=== PATIENT | male | born 1945 | race Caucasian/White ===

== ENCOUNTER → 2017-04-08 | Outpatient (CLI) | payer MEDICARE, BC ==
[~2017-04-08] MED LIST: COREG CR80 MG PO; COREG12.5 MG PO; DIOVAN160 MG PO; FUROSEMIDE40 MG PO; GLIPIZIDE5 MG PO; Hydralazine Hcl PO; LIPITOR20 MG; METFORMIN HCL500 MG PO; MINOCYCLINE HCL50 MG PO; NORVASC5 MG PO; Nifedipine PO; PENICILLIN V P500 MG PO; ULTRAM50 MG PO; WARFARIN SODIUM5 MG PO
--- NOTE | 2017-04-08 11:19 | Diagnostic Imaging Report ---
Exam: Head CT without contrast History: Memory loss, ataxia Comparison studies: None Technique: Axial images were obtained from the skull base to the vertex. Coronal and sagittal images reconstructed from the axial data. Intravenous contrast: None Findings: Scalp: Incidental dystrophic 6 mm calcification in the left occipital scalp. Bones: No fractures, blastic or lytic lesions. Brain volume: Mild generalized volume loss. No significant disproportionate lobar, hippocampal, brainstem or cerebellar atrophy. Ventricles: Mild compensatory dilatation. No hydrocephalus. Extra-axial spaces: No masses, no fluid collection. Parenchyma: No mass, acute hemorrhage or acute or chronic cortical vascular insults. A few scattered hypodensities in the supratentorial white matter are nonspecific but most compatible with chronic small vessel ischemic changes. Sellar/suprasellar region: No abnormalities. Craniocervical junction: Patent foramen magnum. No Chiari one malformation. Incidental findings: Atherosclerotic calcifications in the carotid siphons. IMPRESSION: 1. Mild generalized volume loss. No focal disproportionate atrophy. 2. Mild chronic microvascular ischemic changes. Signed by: Dr. Adan Salas M.D. on 04/08/2017 11:16 AM
== END ==
LOC: CT 08:51
PROVIDERS: ATTEND Internal Medicine
DX: R41.3 Other amnesia (principal); R27.0 Ataxia, unspecified
CPT/HCPCS: 70450

== ENCOUNTER 2018-06-01 11:38 | Inpatient (IN) | payer MEDICARE, BC ==
[~2018-06-01] VITALS: Ht 188 cm; Wt 118.2 kg
--- OUTSIDE RECORDS SUMMARY | 2018-06-01 11:42 | XMS REPORT ---
Author [facility] Address Unknown Phone Unavailable Care Team Providers Care Facility Manager Histology Name Role Phone BAYLEE GRAHAM Unavailable Unavailable Problems This patient has no known problems. Allergies, Adverse Reactions, Alerts This patient has no known allergies or adverse reactions. Medications This patient has no known medications. Results Test Description Test Time Test Comments Text Results Atomic Results Result Comments CT BRAIN WO [place] [address] Patient Name: ALETHA SAGE JR MR #: [id number] : 1945 Age/Sex: 72/M Req #: [id number] Adm Physician: Ordered by: BAYLEE GRAHAM Report #: [id number] Location: CT Room/Bed: Procedure: [id number] CT/CT BRAIN WO Exam Date: 04/08/17 Exam Time: 0915 REPORT STATUS: Signed Exam: Head CT without contrast History: Memory loss, ataxia Comparison studies: None Technique: Axial images were obtained from the skull base to the vertex. Coronal and sagittal images reconstructed from the axial data. Intravenous contrast: None Findings: Scalp: Incidental dystrophic 6 mm calcification in the left occipital scalp. Bones: No fractures, blastic or lytic lesions. Brain volume: Mild generalized volume loss. No significant disproportionate lobar, hippocampal, brainstem or cerebellar atrophy. Ventricles: Mild compensatory dilatation. No hydrocephalus. Extra-axial spaces: No masses, no fluid collection. Parenchyma: No mass, acute hemorrhage or acute or chronic cortical vascular insults. A few scattered hypodensities in the supratentorial white matter are nonspecific but most compatible with chronic small vessel ischemic changes. Sellar/suprasellar region: No abnormalities. Craniocervical junction: Patent foramen magnum. No Chiari one malformation. Incidental findings: Atherosclerotic calcifications in the carotid siphons. IMPRESSION: 1. Mild generalized volume loss. No focal disproportionate atrophy. 2. Mild chronic microvascular ischemic changes. Signed by: Dr. Sue Salas M.D. on 04/08/2017 11:16 AM Dictated By: SUE SALAS MD [id number] Transcribed By: JHON on 04/08/17 1116 COPY TO: BAYLEE GRAHAM
[2018-06-01 12:43] LABS: BASOPHILS % 0.3 % (0.0-1.0); EOSINOPHILS # (AUTO) 0.2 (0.0-0.4); EOSINOPHILS % 3.4 % (0.0-6.0); HEMATOCRIT 40.6 % (38.2-49.6); HEMOGLOBIN 13.2 g/dL (14.0-18.0); LYMPHOCYTES # (AUTO) 0.7 (1.0-3.2); LYMPHOCYTES % 11.6 % (18.0-39.1); MEAN CORPUSCULAR HEMOGLOBIN 29.3 pg (28-32); MEAN CORPUSCULAR HGB CONC 32.5 g/dL (31-35); MONOCYTES # (AUTO) 0.7 (0.2-0.8); MONOCYTES % 12.4 % (4.4-11.3); NEUTROPHILS # (AUTO) 4.3 (2.1-6.9); NEUTROPHILS % 72.1 % (38.7-80.0); PLATELET COUNT 120 x10e3/uL (140-360); RED BLOOD COUNT 4.51 x10e6/uL (4.3-5.7); RED CELL DISTRIBUTION WIDTH 13.2 % (11.7-14.4)
[2018-06-01 12:54] LABS: INR 1.51; PROTHROMBIN TIME 18.8 seconds (11.9-14.5)
[2018-06-01 12:56] LABS: PARTIAL THROMBOPLASTIN TIME 43.4 seconds (23.8-35.5)
--- NOTE | 2018-06-01 13:00 | Diagnostic Imaging Report ---
Examination: Single AP view of the chest. COMPARISON: None. INDICATION: Congestion, shortness of breath DISCUSSION: Lines/tubes: Dual-lead cardiac device. Sternotomy wires. Lungs: Pulmonary venous congestion and edema. Lower lung atelectasis. Pleura: Possible small effusions. Heart and mediastinum: Cardiomegaly. Bones and soft tissues: No acute bony abnormalities. IMPRESSION: 1. Cardiomegaly with edema. Signed by: Dr. Girish Del Castillo M.D. on 06/01/2018 12:57 PM
[2018-06-01 13:04] LABS: ALBUMIN 3.1 g/dL (3.5-5.0); ALBUMIN/GLOBULIN RATIO 0.9 (0.8-2.0); ANION GAP 10.3 mmol/L (8-16); CALCIUM 8.4 mg/dL (8.4-10.2); CREATININE, SERUM 1.94 mg/dL (0.72-1.25); MAGNESIUM 1.9 MG/DL (1.3-2.1); POTASSIUM 4.3 mmol/L (3.5-5.1)
[2018-06-01 13:10] LABS: CREATINE KINASE MB 4.1 ng/mL (0-5.0)
[2018-06-01] MEDS ORDERED: ASPIRIN 81 MG CHEW TAB PO NR (13:30)
[2018-06-01] MEDS ORDERED: CLOPIDOGREL75 MG PO (14:17)
[2018-06-01] MEDS ORDERED: ASPIR 8181 MG PO (14:17)
[2018-06-01] MEDS ORDERED: PACERONE100 MG PO (14:17)
[2018-06-01] MEDS ORDERED: WARFARIN SODIUM4 MG PO (14:17)
[2018-06-01] MEDS ORDERED: BENICAR40 MG PO (14:17)
[2018-06-01 14:54] LABS: B-TYPE NATRIURETIC PEPTIDE2 878.2 pg/mL (0-100)
--- NOTE | 2018-06-01 15:12 | NUR ---
REMOVED BIPAP FROM PATIENT AND PLACED ON 2L N/C
[2018-06-01 16:24] LABS: CLARITY,URINE HAZY (CLEAR); COLOR,URINE YELLOW (YELLOW); KETONES,URINE NEGATIVE (NEGATIVE); LEUKOCYTE ESTERASE ,URINE NEGATIVE (NEGATIVE); NITRITE,URINE NEGATIVE (NEGATIVE); PROTEIN,URINE DIPSTICK 1+ (NEGATIVE); URINE UROBILINOGEN 0.2 mg/dL (0.2 - 1)
[2018-06-01 16:25] LABS: BILIRUBIN,URINE NEGATIVE (NEGATIVE); WBC,URINE (MAN) 0-5 /HPF (0-5)
[2018-06-01 16:26] LABS: BACTERIA,URINE FEW /HPF; EPITHELIAL CELLS,URINE FEW /LPF
[2018-06-01] MEDS ORDERED: DEXTROSE 50% SYRINGE 50 ML IV PRN (16:30)
[2018-06-01 16:51] LABS: ABG PCO2 50 mmHg (41-51); ABG PH 7.31 (7.31-7.41); ABG PO2 93 mmHg (80-105)
[2018-06-01 16:52] LABS: ABG HCO3 26 mmol/L (23-28)
[2018-06-01] MEDS: INSULIN REGULAR, HUMAN 100 UNIT/1 ML 3ML VIAL SQ SCH ×2 (16:55→21:00)
--- NOTE | 2018-06-01 17:01 | Diagnostic Imaging Report ---
Exam: Abdominal film Clinical History: abdominal pain Comparison: None. DISCUSSION: Frontal view of the abdomen shows a nonobstructive bowel gas pattern with mild amount of retained stool. No dilated, air-filled loops of bowel. No abnormal calcifications. No acute bone abnormality. IMPRESSION: 1. Nonobstructive bowel gas pattern. Signed by: Dr. Girish Del Castillo M.D. on 06/01/2018 4:57 PM
[2018-06-01 17:26] VITALS: BP 143/74
[2018-06-01 17:37] VITALS: BP 143/74
--- NOTE | 2018-06-01 17:56 | NUR ---
Received patient from ER, A/Ox3, denies any pains, dgx of CHF, audible wheezing to all lung kiser, no resp distress, on O2 3L NC, call light within reach, consult to cardio and saw patient this morning, FS- 102 and VSS, will monitor
[2018-06-01 18:58] LABS: CREATINE KINASE MB 3.6 ng/mL (0-5.0)
--- NOTE | 2018-06-01 19:20 | NUR ---
REPORT TAKEN FROM AM RN.WALKING ROUNDS DONE.AAOX3.AMBULATES .UNSTEADY GATE NOTED.NC O2 3LGETTING. NO RESP.DISTRESS.NO PAIN VOICED.BED LOCKED AND IN LOWEST POSITION.PHONE AND CALL LIGHT WITHIN REACH.INSTRUCTED TO CALL FOR ASSISTANCE NEEDED.
[2018-06-01 19:31] VITALS: BP 154/63
[2018-06-01 21:00] VITALS: BP 154/63
[2018-06-01] MEDS: GUAIFENESIN 600 MG TAB PO PRN (21:53)
[2018-06-01] MEDS: FUROSEMIDE INJ 10 MG/ML 4 ML VIAL IV SCH (21:53)
--- NOTE | 2018-06-01 22:00 | NUR ---
HAS COUGH AND WHEEZING.NOTIFIED TO RADIO ADJUSTER ODALYS AND .RECEIVED NEW ORDERS .SPUTUM NEEDS TO BE COLLECTED.PROVIDED SPECIMEN CONTAINER AND EXPLAINED TO THE PT.FAMILY MEMBER AT BED SIDE.
[2018-06-01] MEDS ORDERED: ALBUTEROL/IPRATROPIUM 3 ML NEB NEB PRN (22:30)
[2018-06-02] VITALS (9 sets, daily range): BP systolic 112–161; BP diastolic 58–77
[2018-06-02 03:57] LABS: CREATINE KINASE MB 3.8 ng/mL (0-5.0)
[2018-06-02] MEDS: GUAIFENESIN 600 MG TAB PO PRN (06:00)
[2018-06-02] MEDS: FUROSEMIDE INJ 10 MG/ML 4 ML VIAL IV SCH ×3 (06:09→21:26)
--- NOTE | 2018-06-02 07:10 | NUR ---
Report given to the oncoming rn.walking rounds done.stable condition.
[2018-06-02] MEDS: INSULIN REGULAR, HUMAN 100 UNIT/1 ML 3ML VIAL SQ SCH ×4 (07:30→21:00)
[2018-06-02] MEDS ORDERED: ONDANSETRON HCL INJ 2MG/ML 2ML 2 MG/ML VIAL IV PRN ×2 (07:45→09:15)
[2018-06-02] MEDS ORDERED: ALBUTEROL/IPRATROPIUM 3 ML NEB NEB PRN (07:45)
[2018-06-02] MEDS ORDERED: HYDRALAZINE HCL 20 MG/ML VIAL IV PRN ×2 (07:45→09:15)
--- NOTE | 2018-06-02 08:01 | NUR ---
Received patient this morning, a/ox2-3, assisted to the bathroom and back to bed, on O2 3L NC, some dyspnea and NEB txs completed this morning, rounds by LIME TRIMMER for attending and notified of fever, home meds restarted, call light within reach, will monitor
[2018-06-02] MEDS: AZITHROMYCIN 500MG/NS 250 ML 250 ML IV SCH (08:15)
[2018-06-02] MEDS ORDERED: ZOLPIDEM TARTRATE 5 MG TAB PO PRN (08:15)
[2018-06-02] MEDS: CEFTRIAXONE SOD 1 GM/NS 50 ML 50 ML IV SCH (08:15)
[2018-06-02] MEDS ORDERED: SODIUM CHLORIDE 0.9% 250ML 250 ML ONE (08:36)
[2018-06-02 08:59] LABS: ANION GAP 13.7 mmol/L (8-16); CALCIUM 8.6 mg/dL (8.4-10.2); CHOL/HDL RATIO 3.6 (3.9-4.7); CREATININE, SERUM 2.3 mg/dL (0.72-1.25); MAGNESIUM 1.8 MG/DL (1.3-2.1); POTASSIUM 4.7 mmol/L (3.5-5.1)
[2018-06-02] MEDS ORDERED: NON-FORMULARY MEDICATION (Amiodarone Hcl (Pacerone) 100 MG) PO SCH (09:00)
[2018-06-02] MEDS: CARVEDILOL 40 MG CAPCR PO SCH (09:00)
[2018-06-02] MEDS ORDERED: NON-FORMULARY MEDICATION (Olmesartan Medoxomil (Benicar) 40 MG) PO SCH (09:00)
[2018-06-02] MEDS: AMLODIPINE BESYLATE 5 MG TAB PO SCH (09:00)
[2018-06-02] MEDS: ASPIRIN 81 MG CHEW TAB PO SCH (09:00)
[2018-06-02] MEDS ORDERED: FUROSEMIDE INJ 10 MG/ML 4 ML VIAL IV SCH (09:00)
[2018-06-02] MEDS: OLMESARTAN 20 MG TAB PO SCH (09:00)
[2018-06-02] MEDS ORDERED: WARFARIN SODIUM 4 MG PO SCH (09:00)
[2018-06-02] MEDS ORDERED: NON-FORMULARY MEDICATION (Carvedilol Phosphate (Coreg Cr) 80 MG) PO SCH (09:00)
[2018-06-02] MEDS: AMIODARONE HCL 200 MG TAB PO SCH (09:01)
[2018-06-02 09:06] LABS: B-TYPE NATRIURETIC PEPTIDE2 798.1 pg/mL (0-100)
[2018-06-02 09:08] LABS: CREATINE KINASE MB 3.8 ng/mL (0-5.0)
[2018-06-02] MEDS: VALSARTAN 160 MG TAB PO SCH (09:11)
[2018-06-02] MEDS: CLOPIDOGREL BISULFATE 75 MG TAB PO SCH (09:11)
[2018-06-02] MEDS: GUAIFENESIN 600MG/DEXTROMETHORPHAN 30MG TABSR PO SCH ×2 (09:11→16:50)
[2018-06-02] MEDS ORDERED: ACETAMINOPHEN 325 MG TAB PO PRN ×2 (09:15)
[2018-06-02 09:21] LABS: FREE T4 (FREE THYROXINE) 1.24 ng/dL (0.9-1.8); THYROID STIMULATING HORMONE 1.18 uIU/mL (0.350-4.940)
--- NOTE | 2018-06-02 09:45 | NUR ---
EDUCATED ABOUT IMM, SIGNED, FILED IN CHART, WITH COPY LEFT WITH FAMILY AT BEDSIDE.
[2018-06-02 10:12] LABS: BASOPHILS % 0.1 % (0.0-1.0); EOSINOPHILS # (AUTO) 0.1 (0.0-0.4); EOSINOPHILS % 1.1 % (0.0-6.0); HEMATOCRIT 42.7 % (38.2-49.6); LYMPHOCYTES # (AUTO) 0.7 (1.0-3.2); LYMPHOCYTES % 8.5 % (18.0-39.1); MEAN CORPUSCULAR HEMOGLOBIN 29.5 pg (28-32); MEAN CORPUSCULAR HGB CONC 32.8 g/dL (31-35); MEAN CORPUSCULAR VOLUME 89.9 fL (81-99); MONOCYTES # (AUTO) 0.9 (0.2-0.8); MONOCYTES % 11.9 % (4.4-11.3); NEUTROPHILS # (AUTO) 6.1 (2.1-6.9); NEUTROPHILS % 77.9 % (38.7-80.0); PLATELET COUNT 130 x10e3/uL (140-360); RED BLOOD COUNT 4.75 x10e6/uL (4.3-5.7); RED CELL DISTRIBUTION WIDTH 13.2 % (11.7-14.4)
[2018-06-02] MEDS: ALBUTEROL/IPRATROPIUM 3 ML NEB NEB SCH ×2 (13:00→19:50)
--- NOTE | 2018-06-02 15:43 | Consultation ---
DATE OF CONSULTATION: 06/02/2018 HISTORY OF PRESENT ILLNESS: The patient is a 73-year-old man. He has a history of aortic valve replacement about 12 years ago. He also has a history of hypertension and diabetes. He had a catheterization with a stent placement about six days ago. One to two days after the procedure, he noticed worsening cough and some congestion. He subsequently developed phlegm production and fever. PAST SURGICAL HISTORY: 1. Status post aortic valve replacement. 2. Status post cardiac catheterization with stent placement. PAST MEDICAL HISTORY: 1. Diabetes. 2. Hypertension. 3. Coronary artery disease. SOCIAL HISTORY: The patient is not a drinker. The patient is not a smoker. FAMILY HISTORY: The patient has no significant family history. ALLERGIES: NO KNOWN DRUG ALLERGIES. REVIEW OF SYSTEMS: There was a fever yesterday. He has no headache. He has no sore throat. He does have a cough productive of some discolored phlegm. He has some dyspnea. There is no chest pain. He has no abdominal pain. There is no nausea or vomiting. He has no leg edema. PHYSICAL EXAMINATION: VITAL SIGNS: The patient is afebrile, the blood pressure is 161/77, the pulse is 75, saturation is 97% on 3 L. HEENT: No facial swelling or erythema. The nasal mucosa is normal. The oropharynx is normal. LYMPHATIC: No submandibular, cervical, or supraclavicular adenopathy. CARDIAC: Regular rate and rhythm with normal S1, S2. There are no murmurs or rubs. LUNGS: Auscultation of lungs reveals rhonchorous breath sounds bilaterally. There is no wheezing. ABDOMEN: Soft, nontender. There is no rebound or guarding. EXTREMITIES: 2 to 3+ leg edema. NEUROLOGIC: No focal abnormalities. LABORATORY DATA: The white blood cell count is 7.8, the hemoglobin is 14, platelet count is 130. The BUN to creatinine ratio is 40 to 2.3. The other electrolytes are within normal limits. The INR is 1.51. RADIOGRAPHIC DATA: Chest x-ray shows cardiomegaly with some edema. IMPRESSION: 1. Ywmem-wv-muuqwcq systolic congestive heart failure. 2. Community-acquired pneumonia. 3. Tmxbi-qs-sftjzio renal failure. 4. Diabetes. 5. Hypertension. PLAN: 1. Continue diuretics. 2. Continue antibiotics. 3. Repeat chest x-ray and electrolytes tomorrow in the morning. MD RUIZ Carl/WM /[id number]
[2018-06-02] MEDS: WARFARIN SOD 2 MG TAB PO SCH (16:50)
[2018-06-02] MEDS: FAMOTIDINE 20 MG TAB PO SCH (16:50)
[2018-06-02] MEDS: GLIPIZIDE 5 MG TAB PO SCH (16:50)
--- NOTE | 2018-06-02 16:51 | NUR ---
Patient appears and feels better, wheezing resolving and denies any pains, tolerated IV abx, no resp distress, BS 65, offered OJ and tolerated well, no s/sx of hypo/hyperglycemia, will monitor.
--- NOTE | 2018-06-02 19:12 | NUR ---
Rounds completed and report given to on coming nurse, on O2 3L NC, no resp distress.
[2018-06-02] MEDS: ATORVASTATIN 20 MG TAB PO SCH (20:48)
--- NOTE | 2018-06-02 21:26 | NUR ---
BLOOD SUGAR 70MG/DL. SNACKS WAS OFFERED AND ACCEPTED BY PATIENT. NO COMPLAINS MADE.
[2018-06-03] VITALS (8 sets, daily range): BP systolic 110–136; BP diastolic 57–71
[2018-06-03] MEDS: ALBUTEROL/IPRATROPIUM 3 ML NEB NEB SCH ×4 (01:25→20:30)
[2018-06-03 03:36] LABS: BASOPHILS % 0.3 % (0.0-1.0); EOSINOPHILS # (AUTO) 0.1 (0.0-0.4); EOSINOPHILS % 1.6 % (0.0-6.0); HEMATOCRIT 41.7 % (38.2-49.6); HEMOGLOBIN 13.7 g/dL (14.0-18.0); LYMPHOCYTES # (AUTO) 1.2 (1.0-3.2); MEAN CORPUSCULAR HEMOGLOBIN 29.5 pg (28-32); MEAN CORPUSCULAR HGB CONC 32.9 g/dL (31-35); MEAN CORPUSCULAR VOLUME 89.7 fL (81-99); MONOCYTES # (AUTO) 1.2 (0.2-0.8); MONOCYTES % 16.4 % (4.4-11.3); NEUTROPHILS # (AUTO) 4.5 (2.1-6.9); NEUTROPHILS % 64.6 % (38.7-80.0); PLATELET COUNT 124 x10e3/uL (140-360); RED BLOOD COUNT 4.65 x10e6/uL (4.3-5.7); RED CELL DISTRIBUTION WIDTH 13.4 % (11.7-14.4)
--- NOTE | 2018-06-03 04:15 | Consultation ---
DATE OF CONSULTATION: 06/02/2018 Cardiology Consult Note REASON FOR CONSULT: Lnxcg-eo-fvehbzn systolic heart failure. CHIEF COMPLAINT: Shortness of breath. HISTORY OF PRESENT ILLNESS: The patient is a 73-year-old man with history of mechanical aortic valve, CAD, status post recent stent last week at [facility], chronic systolic heart failure, status post permanent pacemaker placement, who presents with several weeks of worsening lower extremity edema, eventually leading to worsening wheezing and shortness of breath to the point where he could not lay down and had to sit up and sleep, could not go to the bathroom without getting extremely short of breath, decided to come to the hospital. Denies any chest pain. He has been compliant with his dual antiplatelet therapy as well as his Coumadin. The patient's reports having some subjective fevers at home prior to admission as well. REVIEW OF SYSTEMS: As per HPI, otherwise negative. PAST MEDICAL HISTORY: 1. Diabetes. 2. Hypertension. 3. Coronary artery disease. 4. Aortic stenosis, status post aortic valve replacement with a mechanical aortic valve, on Coumadin. 5. Chronic systolic heart failure. SOCIAL HISTORY: The patient does not smoke, drink, or abuse drugs. FAMILY HISTORY: No family history of early CAD or sudden cardiac . MEDICATIONS: The patient's outpatient medications were reviewed. Inpatient medications were reviewed. PHYSICAL EXAMINATION: VITAL SIGNS: Temperature 101.7, pulse 81, respiratory rate 24, blood pressure 161/77, and saturating 93% on 3 L nasal cannula. GENERAL: Obese white man, in no acute distress. CARDIOVASCULAR: Mechanical aortic valve. No murmurs, rubs, or gallops. Palpable carotid pulses. Palpable radial pulses. LUNGS: Bibasilar crackles. ABDOMEN: Very obese, soft, nontender, and distended. NEURO AND PSYCH: Alert and oriented to person, place, and time. Normal affect. LABORATORY DATA: Reviewed. IMAGING DATA: Reviewed. Chest x-ray shows cardiomegaly with pulmonary edema. Abdominal x-ray shows nonobstructive bowel gas pattern. TELEMETRY DATA: Reviewed, shows sinus rhythm with occasional pacing. ASSESSMENT: 1. Ywrgy-kn-tiqatjd systolic heart failure. 2. Coronary artery disease, status post recent PCI to the LAD. 3. History of permanent pacemaker placement. 4. History of mechanical aortic valve replacement. 5. Community-acquired pneumonia. 6. Acute kidney injury on chronic kidney disease. PLAN: Continue high-dose IV Lasix 80 mg IV q.8 hours. The patient is diuresing well. Antibiotics per primary team. Continue Coumadin, aspirin, and Plavix given his mechanical aortic valve and recent PCI. No evidence of bleeding. We will obtain echocardiogram to evaluate his valve function as well as LV function to see if there are any acute changes. Thank you for this consult. We will continue to follow. MD LAURENT Monteiro/MODL /[id number]
[2018-06-03 04:29] LABS: ALBUMIN 3.1 g/dL (3.5-5.0); ALBUMIN/GLOBULIN RATIO 0.9 (0.8-2.0); ANION GAP 13.9 mmol/L (8-16); CALCIUM 8.4 mg/dL (8.4-10.2); CREATININE, SERUM 2.45 mg/dL (0.72-1.25); POTASSIUM 3.9 mmol/L (3.5-5.1)
--- NOTE | 2018-06-03 05:08 | NUR ---
Blood sugar low, patient is alert and conversant. Snacks offered.
--- NOTE | 2018-06-03 05:40 | NUR ---
Blood sugar rechecked 75 mg/dl.
[2018-06-03] MEDS: FUROSEMIDE INJ 10 MG/ML 4 ML VIAL IV SCH ×3 (05:41→21:44)
--- NOTE | 2018-06-03 06:20 | NUR ---
Left a message to Dr. Mc production recovery operator for Dr. Herrera patient had 6 beats of VT. Patient was asymptomatic. No complains.
--- NOTE | 2018-06-03 06:55 | Diagnostic Imaging Report ---
EXAMINATION: CHEST SINGLE (PORTABLE) INDICATION: CHF. COMPARISON: Chest x-ray 06/01/2018. FINDINGS: AP view TUBES and LINES: Left chest wall cardiac device. LUNGS: Stable edema. PLEURA: Possible small pleural effusions. No pneumothorax. HEART AND MEDIASTINUM: Stable cardiomegaly. BONES AND SOFT TISSUES: No acute osseous lesion. Sternotomy wires. Soft tissues are unremarkable. UPPER ABDOMEN: No free air under the diaphragm. IMPRESSION: Stable cardiomegaly and edema. Signed by: DR. Wiley Cortez MD on 06/03/2018 6:52 AM
[2018-06-03] MEDS: INSULIN REGULAR, HUMAN 100 UNIT/1 ML 3ML VIAL SQ SCH (07:30)
[2018-06-03] MEDS: CEFTRIAXONE SOD 1 GM/NS 50 ML 50 ML IV SCH (08:25)
[2018-06-03] MEDS: AMIODARONE HCL 200 MG TAB PO SCH (08:29)
[2018-06-03] MEDS: ASPIRIN 81 MG CHEW TAB PO SCH (08:29)
[2018-06-03] MEDS: OLMESARTAN 20 MG TAB PO SCH (08:29)
[2018-06-03] MEDS: GLIPIZIDE 5 MG TAB PO SCH ×2 (08:29→17:22)
[2018-06-03] MEDS: FAMOTIDINE 20 MG TAB PO SCH ×2 (08:29→17:22)
[2018-06-03] MEDS: CLOPIDOGREL BISULFATE 75 MG TAB PO SCH (08:30)
[2018-06-03] MEDS: GUAIFENESIN 600MG/DEXTROMETHORPHAN 30MG TABSR PO SCH ×2 (08:30→17:23)
[2018-06-03] MEDS: CARVEDILOL 40 MG CAPCR PO SCH (08:30)
[2018-06-03] MEDS: VALSARTAN 160 MG TAB PO SCH (08:30)
[2018-06-03] MEDS: AMLODIPINE BESYLATE 5 MG TAB PO SCH (08:30)
[2018-06-03] MEDS: AZITHROMYCIN 500MG/NS 250 ML 250 ML IV SCH (09:02)
[2018-06-03 13:22] LABS: INR 2.5; PROTHROMBIN TIME 27.7 seconds (11.9-14.5)
--- NOTE | 2018-06-03 14:39 | NUR ---
Patient in shower at this time. Nurse assisted patient.
--- NOTE | 2018-06-03 16:53 | Progress Note ---
DATE: 06/03/2018 Pulmonary Critical Care Progress Note SUBJECTIVE: The patient reports some dyspnea, but overall feels improved. He is receiving a breathing treatment. PHYSICAL EXAMINATION: VITAL SIGNS: The patient is afebrile. The blood pressure is 111/63 and the pulse is 63. Saturation is 96% on 3 L. HEENT: Shows no facial swelling or erythema. CARDIAC: Reveals a regular rate and rhythm with a prosthetic click. LUNGS: Auscultation of lungs reveal decreased crackles in the lung kiser. ABDOMEN: Soft and nontender. There is no rebound or guarding. EXTREMITIES: Show no leg edema or calf tenderness. There is no cyanosis or clubbing. SKIN: Shows no rashes. RADIOGRAPHIC DATA: Chest x-ray shows cardiomegaly with pulmonary edema. MICROBIOLOGY: Sputum culture shows gram-negative rods. LABORATORY DATA: White blood cell count is 7 and hemoglobin is 13.7. The platelet count is 124. The BUN to creatinine ratio is 50:2.45. Sodium is 133. The other electrolytes are within normal limits. IMPRESSION: 1. Acute on chronic systolic congestive heart failure. 2. Community-acquired pneumonia. 3. Thrombocytopenia. 4. Acute on chronic renal failure. 5. Diabetes. 6. Hypertension. PLAN: 1. Continue current antibiotics and await final culture results. 2. Oxygen. 3. Bronchodilators. 4. Continue current cardiac regimen. Jan Canas MD [facility]/JASSL /[id number]
[2018-06-03] MEDS: WARFARIN SOD 2 MG TAB PO SCH (17:23)
--- NOTE | 2018-06-03 19:14 | Progress Note ---
DATE: 06/03/2018 Cardiology Progress Note SUBJECTIVE: Feeling much better today, no more respiratory distress. OBJECTIVE: VITAL SIGNS: Temperature 97.0, pulse 65, respiratory rate 22, blood pressure 112/63, saturating 97% on 3 L nasal cannula. GENERAL: Elderly white man, in no acute distress. CARDIOVASCULAR: Mechanical aortic valve. No murmurs, rubs, or gallops. Palpable carotid pulses. Palpable radial pulses. LUNGS: Bibasilar crackles. ABDOMEN: Obese, soft, nontender, nondistended. NEURO AND PSYCH: Alert and oriented to person, place, and time. Normal affect. LABORATORY DATA: Reviewed. IMAGING DATA: Reviewed. TELEMETRY DATA: Reviewed, shows normal sinus rhythm. ASSESSMENT: 1. Acute on chronic systolic heart failure. 2. Coronary artery disease, status post recent percutaneous coronary intervention to left anterior descending artery. 3. History of permanent pacemaker placement. 4. History of mechanical aortic valve replacement, on Coumadin. 5. Community-acquired pneumonia. 6. Acute kidney injury on chronic kidney disease. PLAN: Continue IV diuretics. The patient continues to feel better. Chest x-ray still shows some pulmonary edema. Renal function is stable. Continue aspirin, Plavix, and warfarin. Thank you for this consult. We will continue to follow. MD LAURENT Monteiro/WM /[id number]
[2018-06-03] MEDS: ATORVASTATIN 20 MG TAB PO SCH (21:44)
[2018-06-04] VITALS (8 sets, daily range): BP systolic 123–159; BP diastolic 55–79
[2018-06-04] MEDS: ALBUTEROL/IPRATROPIUM 3 ML NEB NEB SCH ×4 (01:00→19:05)
[2018-06-04 04:16] LABS: BASOPHILS % 0.3 % (0.0-1.0); EOSINOPHILS # (AUTO) 0.3 (0.0-0.4); EOSINOPHILS % 3.8 % (0.0-6.0); HEMATOCRIT 42.6 % (38.2-49.6); LYMPHOCYTES # (AUTO) 1.3 (1.0-3.2); LYMPHOCYTES % 18.2 % (18.0-39.1); MEAN CORPUSCULAR HEMOGLOBIN 29.4 pg (28-32); MEAN CORPUSCULAR HGB CONC 32.9 g/dL (31-35); MEAN CORPUSCULAR VOLUME 89.5 fL (81-99); MONOCYTES # (AUTO) 0.9 (0.2-0.8); MONOCYTES % 12.8 % (4.4-11.3); NEUTROPHILS # (AUTO) 4.5 (2.1-6.9); NEUTROPHILS % 64.5 % (38.7-80.0); PLATELET COUNT 134 x10e3/uL (140-360); RED BLOOD COUNT 4.76 x10e6/uL (4.3-5.7); RED CELL DISTRIBUTION WIDTH 13.2 % (11.7-14.4)
[2018-06-04 04:33] LABS: ANION GAP 14.3 mmol/L (8-16); CALCIUM 8.3 mg/dL (8.4-10.2); CREATININE, SERUM 2.69 mg/dL (0.72-1.25); MAGNESIUM 2.1 MG/DL (1.3-2.1); POTASSIUM 4.3 mmol/L (3.5-5.1)
[2018-06-04] MEDS: FUROSEMIDE INJ 10 MG/ML 4 ML VIAL IV SCH ×2 (06:19→11:03)
--- NOTE | 2018-06-04 07:18 | NUR ---
Received patient in report this morning. Patient is awake, sitting in chair. No S&S of distress at time.
[2018-06-04 08:03] LABS: INR 2.44; PROTHROMBIN TIME 27.2 seconds (11.9-14.5)
[2018-06-04] MEDS ORDERED: METHYLPREDNISOLONE SOD SUCC 40 MG/ML VIAL 1ML IV SCH (09:00)
[2018-06-04] MEDS: OLMESARTAN 20 MG TAB PO SCH (09:09)
[2018-06-04] MEDS: FAMOTIDINE 20 MG TAB PO SCH ×2 (09:09→16:48)
[2018-06-04] MEDS: ASPIRIN 81 MG CHEW TAB PO SCH (09:09)
[2018-06-04] MEDS: CEFTRIAXONE SOD 1 GM/NS 50 ML 50 ML IV SCH (09:09)
[2018-06-04] MEDS: GLIPIZIDE 5 MG TAB PO SCH ×2 (09:09→16:48)
[2018-06-04] MEDS: CARVEDILOL 40 MG CAPCR PO SCH (09:10)
[2018-06-04] MEDS: GUAIFENESIN 600MG/DEXTROMETHORPHAN 30MG TABSR PO SCH ×2 (09:10→17:20)
[2018-06-04] MEDS: CLOPIDOGREL BISULFATE 75 MG TAB PO SCH (09:10)
[2018-06-04] MEDS: VALSARTAN 160 MG TAB PO SCH (09:10)
[2018-06-04] MEDS: AMLODIPINE BESYLATE 5 MG TAB PO SCH (09:10)
[2018-06-04] MEDS: AMIODARONE HCL 200 MG TAB PO SCH (09:13)
[2018-06-04] MEDS: AZITHROMYCIN 500MG/NS 250 ML 250 ML IV SCH (09:42)
--- NOTE | 2018-06-04 09:48 | NUR ---
Patient is awake and oriented, sitting in chair at side of bed. Oxygen NC at 3L in place. No SOB or pain reported at this time. Occasional productive coughing noted. Lung sounds diminished. Bowel sounds active. Skin in tact. Edema noted to BLE, more in left leg with pitting edema +1. Patient has no complaints at this time. Walker in reach. at bedside. Call light in reach. Non-skid footwear in place. Bed locked in lowest position.
--- NOTE | 2018-06-04 12:07 | NUR ---
EDUCATED ABOUT IMM, SIGNED, FILED IN CHART, WITH COPY LEFT WITH FAMILY AT BEDSIDE.
--- NOTE | 2018-06-04 15:00 | NUR ---
Home O2 eval performed at this time. Patient at rest on room air noted at 93%. Patient ambulated without oxygen on room air and noted at 96%. No s/s of SOB noted
--- NOTE | 2018-06-04 15:30 | Progress Note ---
DATE: 06/04/2018 Cardiology Progress Note SUBJECTIVE: No major events overnight. Feels much better today off oxygen. OBJECTIVE: VITAL SIGNS: Temperature 96.9, pulse 70, respiratory rate 20, blood pressure 136/55, saturating 98% on room air. GENERAL: Elderly white man, in no acute distress. CARDIOVASCULAR: Regular rate and rhythm. Mechanical aortic valve. No murmurs, rubs, or gallops. LUNGS: Mild scattered wheezing, otherwise no rales heard today. ABDOMEN: Very obese, soft, nontender, mildly distended. NEURO AND PSYCH: Alert, oriented to person, place, and time. Normal affect. INPATIENT MEDICATIONS: Reviewed. LABORATORY DATA: Reviewed. Renal function is slightly worsened today with creatinine of 2.7. IMAGING DATA: Reviewed. TELEMETRY DATA: Reviewed, it shows sinus and paced rhythm. ASSESSMENT: 1. Acute on chronic systolic heart failure, ejection fraction 45% to 50%. 2. Coronary artery disease, status post recent percutaneous coronary intervention to the left anterior descending artery. 3. History of permanent pacemaker placement. 4. History of mechanical aortic valve replacement, on Coumadin. 5. Community-acquired pneumonia. 6. Acute kidney injury on chronic kidney disease. PLAN: Decrease IV diuretic dose to 40 mg IV daily. Volume status much improved. Continue antibiotics per primary team. Continue aspirin, Plavix, and warfarin as well as other cardiovascular medications. Of note, the patient was on two angiotensin receptor blockers, I discontinued one of them. Thank you for this consult. We will continue to follow. MD LAURENT Monteiro/JASSL /[id number]
--- NOTE | 2018-06-04 15:35 | Progress Note ---
DATE: 06/04/2018 SUBJECTIVE: The patient feels better. He still has some cough. He is not having fevers. PHYSICAL EXAMINATION: VITAL SIGNS: The patient is afebrile. The blood pressure is 136/55 and the saturation is 94% on 3 L. The pulse is 70. HEENT: Shows no facial swelling or erythema. The nasal mucosa is normal. The oropharynx is normal. LYMPHATIC: Shows no submandibular, cervical, or supraclavicular adenopathy. NECK: Shows no JVD or thyromegaly. There is no nuchal rigidity. CARDIAC: Reveals a regular rate and rhythm with a normal S1 and S2. LUNGS: Auscultation of lungs reveals a few rhonchorous breath sounds bilaterally. There is no wheezing. ABDOMEN: Soft, nontender. There is no rebound or guarding. EXTREMITIES: Show no leg edema or calf tenderness. There is no cyanosis or clubbing. SKIN: Shows no rashes. NEUROLOGICAL: Shows no focal abnormalities. IMPRESSION: 1. Acute on chronic systolic congestive heart failure. 2. Community-acquired pneumonia. 3. Thrombocytopenia. 4. Acute on chronic renal failure. 5. Diabetes. 6. Hypertension. PLAN: 1. Wean Solu-Medrol. 2. Continue antibiotics and await final culture results. 3. Repeat CBC in a.m. 4. Continue oxygen. 5. Continue current cardiac regimen. Jan Canas MD LM/WM /[id number]
--- NOTE | 2018-06-04 15:45 | NUR ---
Nutrition Screen Note RD Recommendation for Physician: -Rec adding cardiac to ADA diet as medically appropriate Plan of Care: RD following, monitoring for tolerance and adequacy Nutrition reason for involvement: Diagnosis Primary Diagnose(s): 1. Acute on chronic systolic heart failure. 2. Coronary artery disease, status post recent percutaneous coronary intervention to left anterior descending artery. PMH: DM, HTN, CAD Ht: 74in Wt: 260.5lb BMI: 33.4kg/m2 IBW: 190lb RD Assessment: (06/04) Chart reviewed. Labs and meds reviewed. 73yo M, who was admitted for cough and congestion. 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 Pt denied chewing/swallowing problems and nausea/vomiting. Pt has had good appetite with >50% meal intake since admission. Will cont to monitor. Please consult as needed. Current Diet: ADA diet Malnutrition Evaluation (06/04) The patient does not meet criteria for a specified degree of malnutrition at this time. Will re-evaluate at follow-up as appropriate. Diet Education Needs Assessment: Diet education not indicated. Nutrition Care Level: low Signed: Tabitha Brown, MS, RD, LD
[2018-06-04] MEDS: WARFARIN SOD 2 MG TAB PO SCH (17:20)
[2018-06-04] MEDS: TOBRAMYCIN 40MG/ML 30ML MDV INH SCH (19:00)
--- NOTE | 2018-06-04 20:10 | NUR ---
ASSESSMENT DONE.NO RESP.DISTRESS.NO PAIN VOICED.AAOX3.RESTING IN THE RECYLINER.FAMILY MEMBER AT BED SIDE.PHONE AND CALL LIGHT WITHIN REACH.INSTRUCTED TO CALL FOR ASSISTANCE NEEDED.
[2018-06-04] MEDS: ATORVASTATIN 20 MG TAB PO SCH (21:47)
[2018-06-04] MEDS ORDERED: INSULIN REGULAR, HUMAN 100 UNIT/1 ML 3ML VIAL SQ ONE (22:00)
--- NOTE | 2018-06-04 22:11 | NUR ---
Blood sugar noted 409.notified to data input clerk of .ordered 3units humulin r one time dose.carried out the order.
[2018-06-05] VITALS (8 sets, daily range): BP systolic 147–186; BP diastolic 74–91
[2018-06-05] MEDS: ALBUTEROL/IPRATROPIUM 3 ML NEB NEB SCH ×3 (01:00→13:00)
--- NOTE | 2018-06-05 03:52 | NUR ---
BP NOTED 186/91.HYDRALAZINE 10 MG IV GIVEN.
--- NOTE | 2018-06-05 03:55 | NUR ---
BLOOD DRAWN AND SENT TO THE LAB.PT TOLERATED WELL.
[2018-06-05 04:02] LABS: HEMATOCRIT 42.6 % (38.2-49.6); HEMOGLOBIN 14.2 g/dL (14.0-18.0); LYMPHOCYTES # (AUTO) 0.6 (1.0-3.2); MEAN CORPUSCULAR HEMOGLOBIN 29.3 pg (28-32); MEAN CORPUSCULAR HGB CONC 33.3 g/dL (31-35); MONOCYTES # (AUTO) 0.4 (0.2-0.8); MONOCYTES % 7.5 % (4.4-11.3); NEUTROPHILS # (AUTO) 4.4 (2.1-6.9); NEUTROPHILS % 81.1 % (38.7-80.0); PLATELET COUNT 149 x10e3/uL (140-360); RED BLOOD COUNT 4.84 x10e6/uL (4.3-5.7); RED CELL DISTRIBUTION WIDTH 13.1 % (11.7-14.4)
[2018-06-05 04:16] LABS: INR 2.57; PROTHROMBIN TIME 28.3 seconds (11.9-14.5)
[2018-06-05 04:23] LABS: ALBUMIN/GLOBULIN RATIO 0.7 (0.8-2.0); CALCIUM 8.5 mg/dL (8.4-10.2); CREATININE, SERUM 2.32 mg/dL (0.72-1.25)
--- NOTE | 2018-06-05 06:17 | NUR ---
BP CHECKED AND NOTED 147/74 MMOF HG.
[2018-06-05] MEDS ORDERED: MUCINEX DM ER1 EACH PO (06:35)
[2018-06-05] MEDS ORDERED: CEFTIN PO (06:35)
[2018-06-05] MEDS ORDERED: PREDNISONE PO (06:35)
[2018-06-05] MEDS ORDERED: ZITHROMAX500 MG PO (06:35)
[2018-06-05] MEDS ORDERED: INSULIN LISPRO 100 UNIT/1 ML 3ML VIAL SQ SCH (06:45)
--- NOTE | 2018-06-05 06:50 | NUR ---
REPORT GIVEN TO THE ONCOMING RN.WALKING ROUNDS DONE.STABLE CONDITION.
[2018-06-05] MEDS: TOBRAMYCIN 40MG/ML 30ML MDV INH SCH (07:00)
--- NOTE | 2018-06-05 07:15 | NUR ---
Rcvd patient in report this am, Patient is asleep in recliner at this time. no s/s of distress noted
[2018-06-05] MEDS: FAMOTIDINE 20 MG TAB PO SCH ×2 (08:21→16:07)
[2018-06-05] MEDS: ASPIRIN 81 MG CHEW TAB PO SCH (08:21)
[2018-06-05] MEDS: AMIODARONE HCL 200 MG TAB PO SCH (08:21)
[2018-06-05] MEDS: GLIPIZIDE 5 MG TAB PO SCH ×2 (08:21→16:07)
[2018-06-05] MEDS: GUAIFENESIN 600MG/DEXTROMETHORPHAN 30MG TABSR PO SCH ×2 (08:22→16:07)
[2018-06-05] MEDS: CARVEDILOL 40 MG CAPCR PO SCH (08:22)
[2018-06-05] MEDS: CLOPIDOGREL BISULFATE 75 MG TAB PO SCH (08:22)
[2018-06-05] MEDS: VALSARTAN 160 MG TAB PO SCH (08:22)
[2018-06-05] MEDS: AMLODIPINE BESYLATE 5 MG TAB PO SCH (08:22)
[2018-06-05] MEDS ORDERED: METHYLPREDNISOLONE SOD SUCC 40 MG/ML VIAL 1ML IV SCH (09:00)
[2018-06-05] MEDS ORDERED: ONDANSETRON HCL 4 MG ORAL DISINTEGRATING TAB PO PRN (09:00)
[2018-06-05] MEDS ORDERED: CEFEPIME 1GM/NS 0.9% 50 ML 50 ML IV SCH ×2 (09:00→14:00)
--- NOTE | 2018-06-05 09:00 | NUR ---
Patient is alert and oriented x4. Reports sleeping on and off during the night. No complaints, pain, or SOB at this time. Lung sounds diminished. Bowel sounds active. Skin intact. 18 g IV to right forearm, saline locked, asymptomatic and patent. Slight edema to bilateral lower extremities, non-pitting. Patient ambulates to bathroom, no weakness or dyspnea on exertion reported. Patient still in recliner, prefers it to the bed. Call light in reach. Instructed to call for assistance.
--- NOTE | 2018-06-05 09:59 | Diagnostic Imaging Report ---
EXAMINATION: CHEST 2 VIEWS INDICATION: Shortness of breath. Congestive heart failure. ^CHF Pneumonia ^[id number] ^[id number] COMPARISON: 06/03/2018 FINDINGS: TUBES and LINES: Left chest wall cardiac device. LUNGS: Stable edema. PLEURA: Possible small pleural effusions. No pneumothorax. HEART AND MEDIASTINUM: Stable cardiomegaly. BONES AND SOFT TISSUES: No acute osseous lesion. Sternotomy wires. Soft tissues are unremarkable. UPPER ABDOMEN: No free air under the diaphragm. IMPRESSION: Stable cardiomegaly and edema. Signed by: Dr. Oh De Souza M.D. on 06/05/2018 9:56 AM
[2018-06-05] MEDS: FUROSEMIDE INJ 10 MG/ML 4 ML VIAL IV SCH (10:10)
--- NOTE | 2018-06-05 11:35 | Progress Note ---
DATE: 06/05/2018 Pulmonary Progress Note SUBJECTIVE: The patient has improvement. He has less cough and less congestion. He has no fever. PHYSICAL EXAMINATION: VITAL SIGNS: The patient is afebrile. The blood pressure is 172/90 and saturation is 98%. The pulse is 71. HEENT: No facial swelling or erythema. The nasal mucosa is normal. The oropharynx is normal. LYMPHATIC: No submandibular, cervical, or supraclavicular adenopathy. CARDIAC: Reveals regular rate and rhythm with normal S1 and S2. There are no murmurs or rubs heard. LUNGS: Auscultation of lungs reveals rhonchorous breath sounds bilaterally. There is no wheezing. ABDOMEN: Soft, nontender. There is no rebound or guarding. EXTREMITIES: No leg edema or calf tenderness. There is no cyanosis or clubbing. SKIN: No rashes. NEUROLOGICAL: No focal abnormalities. IMPRESSION: 1. Usysb-do-jswffme systolic congestive heart failure. 2. Pseudomonas pneumonia with sepsis that was present on admission. 3. Thrombocytopenia. 4. Diabetes. 5. Acute on chronic renal failure. 6. Hypertension. PLAN: 1. Switch antibiotics to cover for Pseudomonas in the sputum. 2. Continue current cardiac regimen. 3. Repeat chest x-ray. 4. Continue warfarin. Jan Canas MD [facility]/MODL /[id number]
[2018-06-05] MEDS ORDERED: INSULIN LISPRO 100 UNIT/1 ML 3ML VIAL SQ ONE (12:15)
[2018-06-05] MEDS ORDERED: HYDROCHLOROTHIAZIDE 25 MG TAB PO ONE (12:15)
[2018-06-05] MEDS ORDERED: AMLODIPINE BESYLATE 5 MG TAB PO ONE (12:15)
--- NOTE | 2018-06-05 12:17 | NUR ---
Call placed to JOSE G Berg regarding blood pressure and elevated sugar. New orders noted. Will inform spouse. She is concerned about him going home
[2018-06-05] MEDS ORDERED: CEFEPIME HCL 1 GM VIAL IV SCH (14:00)
--- NOTE | 2018-06-05 15:55 | NUR ---
Removed IV at this time, Pressure coban dressing applied
[2018-06-05] MEDS: WARFARIN SOD 2 MG TAB PO SCH (16:07)
--- NOTE | 2018-06-05 16:20 | NUR ---
Patient discharged from facility to home. Patient assisted out via staff. Rewviewd all discharge paperwork with spouse and patient, RX's given and reviewed, and follow up appts reviewed. No questions noted regarding discharge paperwork
--- NOTE | 2018-06-05 16:21 | NUR ---
Informed JOSE G Berg of RX number for pharmacy to call in lancets and test strips. Patient had a contour meter. RX# [phone]
--- NOTE | 2018-06-06 02:04 | Discharge Summary ---
ADMISSION DIAGNOSES: Acute on chronic systolic congestive heart failure, acute respiratory distress, hypertension, bronchopneumonia, type 2 diabetes, history of mechanical MVR, hyperlipidemia, and coronary artery disease with stents. DISCHARGE DIAGNOSES: Acute on chronic systolic congestive heart failure, acute respiratory distress, hypertension, bronchopneumonia, type 2 diabetes, history of mechanical MVR, hyperlipidemia, and coronary artery disease with stents. HISTORY: The patient has a history of CAD with stents, mechanical MVR placement, hypertension, PAD, type 2 diabetes, high-grade AV block, hyperlipidemia, and chronic systolic CHF. SURGICAL HISTORY: Right great toe amputation, dual chamber pacemaker, mechanical MVR. FAMILY HISTORY: The patient's mom, sister, and grandpa have diabetes. HOSPITAL COURSE: A 73-year-old male complains of shortness of breath and orthopnea that began 1 week ago. He went to Dr. Baird to have a PCI placed on 05/27/2018. He did not improve after that. He has a productive cough with yellow sputum. He denies congestion and swelling. The patient denies fever, but complains of him feeling hot. He says nothing improves his symptoms, but exertion worsens his symptoms. On admission, the patient had a BNP of 1179. He was started on Lasix. He was initially on BiPAP in the ER, but was weaned off prior to going on the floor. Echo showed an EF of 35-40%. EKG was normal sinus rhythm. Chest x-ray showed cardiomegaly with edema. KUB was negative. Blood culture and urine culture negative. Sputum culture, gram-negative bacillus. The patient's A1c was 9.6. He was started on IV antibiotics, Rocephin and Zithromax with Mucinex and nebs. He came back flu negative. He was started on home medicines for other comorbidities. After couple days of IV antibiotics and Lasix, he is feeling much better and feeling back to baseline. He will discharge home with Zithromax, Ceftin, and Mucinex. He will follow up with primary care in 1-2 weeks. According to and , the patient has been out of diabetic supplies for about 2 months, so prescription was called into his pharmacy for supplies. Vital signs stable, patient afebrile. The patient and understand discharge instructions and agrees to plan. Dictated by Morena M [place], RN POOL MD MIKE Cole/WM /[id number]
[2018-06-06] MEDS ORDERED: AMLODIPINE BESYLATE 10 MG TAB PO SCH (09:00)
[2018-06-06] MEDS ORDERED: AMLODIPINE BESYLATE 5 MG TAB PO SCH (09:00)
== END 2018-06-05 16:19 | disposition home or self-care (01) | DRG 177 ==
LOC: ER 11:38 → ERHOLD 16:25 → MED/SURG 17:22
PROVIDERS: ADMIT Internal Medicine; ATTEND Internal Medicine
DX: J15.6 Pneumonia due to other Gram-negative bacteria (principal); I50.23 Acute on chronic systolic (congestive) heart failure; I13.0 Hypertensive heart and chronic kidney disease with heart failure and stage 1 through stage 4 chronic kidney disease, or unspecified chronic kidney disease; N18.9 Chronic kidney disease, unspecified; E11.22 Type 2 diabetes mellitus with diabetic chronic kidney disease; Z79.4 Long term (current) use of insulin; Z79.01 Long term (current) use of anticoagulants; Z95.2 Presence of prosthetic heart valve; I25.10 Atherosclerotic heart disease of native coronary artery without angina pectoris; Z95.5 Presence of coronary angioplasty implant and graft; D69.6 Thrombocytopenia, unspecified; Z95.0 Presence of cardiac pacemaker; E11.51 Type 2 diabetes mellitus with diabetic peripheral angiopathy without gangrene; R06.03 Acute respiratory distress
CPT/HCPCS: 36415; 36600; 71045; 71046; 74018; 80048; 80053; 80061; 81001; 82550; 82553; 82805; 82948; 83036; 83605; 83735; 83880; 84439; 84443; 84484; 85025; 85379; 85610; 85730; 87040; 87070; 87086; 87186; 87205; 87400; 93005; 93306; 94640; 94660; 97139; 99284; J0360; J0456; J0692; J0696; J1940; J2920; J3260; J7050

== ENCOUNTER 2018-12-24 19:51 | Inpatient (IN) | payer MEDICARE, BC ==
[~2018-12-24] VITALS: Ht 188 cm; Wt 111.1 kg
[~2018-12-24 19:51] MED LIST changes: +ASPIR 8181 MG PO; +BENICAR40 MG PO; +CEFTIN PO; +CLOPIDOGREL75 MG PO; -LIPITOR20 MG; +LIPITOR20 MG PO; +MUCINEX DM ER1 EACH PO; +PACERONE100 MG PO; +PREDNISONE PO; +WARFARIN SODIUM4 MG PO; +ZITHROMAX500 MG PO
--- OUTSIDE RECORDS SUMMARY | 2018-12-24 19:57 | XMS REPORT | Summary of Care ---
Author Author [facility] Organization [facility] Address Unknown Phone Unavailable Care Team Providers Care Negative Retoucher Name Role Phone PCP Unavailable Reason for Visit * Reason Comments Post-op Follow-up Encounter Details Care Team Description Date Type Department Kaiden Aranda MD [address] [place] [address] Post-op Follow-up 12/18/2018 Office Visit [facility] Orthopedic Surgery [address], [place] [address] Allergies No Known Allergiesdocumented as of this encounter (statuses as of 12/19/2018) Medications End Date Status Medication Sig Dispensed Refills Start Date Active amiodarone (PACERONE) 100 0 MG tablet 9 Active amlodipine (NORVASC) 5 MG 0 tablet 9 Active atorvastatin (LIPITOR) 40 0 MG tablet 9 Active IODOSORB 0.9 % GEL APPLY 0 TOPICALLY TO 9 WOUND DIRECTED PRN Active COREG CR 80 MG CP24 0 9 Active dicloxacillin (DYNAPEN) TK ONE C PO 0 500 MG capsule TID FOR 14 9 DAYS Active doxycycline (MONODOX) 100 TK 1 C PO QD 0 MG capsule 9 Active ezetimibe (ZETIA) 10 MG 0 tablet 9 Active furosemide (LASIX) 40 MG 0 tablet 9 Active glipiZIDE (GLUCOTROL) 5 0 MG tablet 9 Active MICROLET LANCETS MISC USE UTD BID 3 9 Active CONTOUR NEXT TEST USE UTD BID 3 9 Active olmesartan (BENICAR) 40 0 MG tablet 9 Active sulfamethoxazole-trimetho TK 1 T PO 0 prim (BACTRIM DS, SEPTRA BID 9 DS) 800-160 MG per tablet Active warfarin (COUMADIN) 4 MG 0 tablet 9 documented as of this encounter (statuses as of 12/19/2018) Active Problems Problem Noted Date Closed displaced intertrochanteric fracture of right femur (HCCode) 12/19/2018 documented as of this encounter (statuses as of 12/19/2018) Social History Date Tobacco Use Types Packs/Day Years Used Never Smoker Smokeless Tobacco: Never Used Drinks/Week oz/Week Comments Alcohol Use Never Alcohol Habits Answer Date Recorded How often do you have a drink containing alcohol? Never 12/18/2018 How many drinks containing alcohol do you have on Not asked a typical day when you are drinking? How often do you have six or more drinks on one Not asked occasion? Sex Assigned at Date Recorded Not on file Industry Job Start Date Occupation Not on file Not on file Not on file Travel End Travel History Travel Start No recent travel history available. documented as of this encounter Last Filed Vital Signs Not on filedocumented in this encounter Progress Notes * Kaiden Aranda MD - 12/18/2018 3:30 PM CDT [facility] Orthopedic Surgery POST-OP GLOBAL Clinic Visit ASSESSMENT: 1. Closed displaced intertrochanteric fracture of right femur with routine heali ng, subsequent encounter PLAN: Treatment Plan: Continue post-op protocol Medications: NSAID PRN Weight Bearing Status: WBAT PT / OT: Continue at facility Follow-Up: 2 months Radiographs at Follow-Up: AP pelvis with 2 views R hip SUBJECTIVE: Injury or Condition: Right peritrochanteric femur fracture Procedure: Open treatment with CMN Date of Surgery: 11/22/18 Current Condition: Pain improving. Still at a rehab facility. Denies infectiou s symptoms. Ambulating with a walker. VITAL SIGNS: PHYSICAL EXAM: Constitutional: awake, alert, follows commands, and in no acute distress Skin: intact without abrasions, rashes, or draining sinuses Neurologic: gait deferred, normal strength and sensation in extremities Musculoskeletal: incisions well healed. Some pain with hip ROM. +EHL/FHL/TA/GS . Some resolving ecchymosis posteriorly. Sensation intact. IMAGING / LABORATORY FINDINGS: AP pelvis with 2 views R hip show healing fracture in good alignment PROCEDURES: None COUNSELING / PATIENT EDUCATION: Vitamin D Supplementation Kaiden Aranda M.D. [facility] Chief Dispatcher - Orthopedic Trauma Medical Student Selective Course Director Departmental Lead Elective Officer [facility] Department of Orthopedic Surgery C DT documented in this encounter Plan of Treatment Care Team Description Date Type Specialty Kaiden Aranda MD [address] [place] [address] [phone] 02/19/2019 Office Visit Orthopedic Surgery Order Schedule Name Type Priority Associated Diagnoses Ordered: 12/18/2018 ORT - XR HIP RIGHT 2V RI Charge Routine Closed displaced (CHARGE ONLY) intertrochanteric fracture of right femur with routine healing, subsequent encounter Ordered: 12/18/2018 ORT - XR PELVIS AP RI Charge Routine Closed displaced (CHARGE ONLY) intertrochanteric fracture of right femur with routine healing, subsequent encounter Health Maintenance Due Date Last Done Comments COLON CANCER SCREENIN1947 COLONOSCOPY MEDICARE AWV 1947 TETANUS SHOT (ADULT) 1962 HEPATITIS C SCREENING 1965 PNEUMOVAX >=65 (PPSV23) 2012 PREVNAR >=65 (PCV13) 2012 FLU VACCINE > 6 MONTHS 10/09/2018 FALL SCREEN 12/19/2019 12/18/2018 documented as of this encounter Results * XR PELVIS LIMITED (12/18/2018 4:13 PM CDT) Specimen Narrative Performed At For result, please reference physician's note on the corresponding date. * XR HIP RIGHT (COMPLETE) (12/18/2018 4:13 PM CDT) Specimen Narrative Performed At For result, please reference physician's note on the corresponding date. documented in this encounter Visit Diagnoses Diagnosis Closed displaced intertrochanteric fracture of right femur with routine healing, subsequent encounter - Primary documented in this encounter Insurance Type Payer Benefit Subscriber ID Effective Phone Address Plan / Dates Group Medicare MEDICARE MEDICARE xxxxxxxxxxx 2008-P [id number] [place] [address] PPO BLUE CROSS BLUE SHIELD PPO/EPO - xxxxxxxxxxxx 2016-P [address] BC[employer] resent [id number] [place] [address] documented as of this encounter
[2018-12-24] MEDS ORDERED: VANCOMYCIN 1GM/NS 250 ML 250 ML IV STA (19:58)
--- NOTE | 2018-12-24 20:30 | NUR ---
MARKETING AUTOMATION MANAGER NOTIFIED TO CALL OUT VENOUS DOPPLER.
[2018-12-24 20:38] LABS: BASOPHILS # (AUTO) 0.1 (0.0-0.1); BASOPHILS % 0.9 % (0.0-1.0); EOSINOPHILS # (AUTO) 0.5 (0.0-0.4); EOSINOPHILS % 7.7 % (0.0-6.0); HEMATOCRIT 32.4 % (38.2-49.6); HEMOGLOBIN 10.2 g/dL (14.0-18.0); LYMPHOCYTES # (AUTO) 1.2 (1.0-3.2); LYMPHOCYTES % 19.9 % (18.0-39.1); MEAN CORPUSCULAR HEMOGLOBIN 28.9 pg (28-32); MEAN CORPUSCULAR HGB CONC 31.5 g/dL (31-35); MEAN CORPUSCULAR VOLUME 91.8 fL (81-99); MONOCYTES % 16.8 % (4.4-11.3); NEUTROPHILS # (AUTO) 3.2 (2.1-6.9); PLATELET COUNT 203 x10e3/uL (140-360); RED BLOOD COUNT 3.53 x10e6/uL (4.3-5.7); RED CELL DISTRIBUTION WIDTH 14.5 % (11.7-14.4)
[2018-12-24 20:56] LABS: ANION GAP 12.1 mmol/L (8-16); CALCIUM 9.6 mg/dL (8.4-10.2); CREATININE, SERUM 2.45 mg/dL (0.72-1.25); POTASSIUM 5.1 mmol/L (3.5-5.1)
--- NOTE | 2018-12-24 22:08 | Diagnostic Imaging Report ---
EXAMINATION: CHEST 2 VIEWS INDICATION: ^lower extremity edema ^[id number] ^[id number] COMPARISON: 06/03/2018 FINDINGS: PA and lateral views TUBES and LINES: Stable dual-lead left chest wall cardiac device. LUNGS: Lungs are well inflated. Pulmonary vascular congestion and mild to moderate interstitial edema. PLEURA: Small bilateral pleural effusions. No pneumothorax. HEART AND MEDIASTINUM: The cardiomediastinal silhouette is markedly enlarged. Median sternotomy wires. Prosthetic valve. BONES AND SOFT TISSUES: No acute osseous lesion. Soft tissues are unremarkable. UPPER ABDOMEN: No free air under the diaphragm. IMPRESSION: Again seen markedly enlarged cardiomediastinal silhouette, pulmonary vascular congestion, and mild to moderate interstitial edema. Signed by: Dr. Rahul Colin MD on 12/24/2018 10:05 PM
[2018-12-25 04:02] LABS: CREATINE KINASE MB 2.2 ng/mL (0-5.0)
[2018-12-25 06:20] LABS: CREATINE KINASE MB 1.7 ng/mL (0-5.0)
[2018-12-25 10:35] LABS: BASOPHILS % 0.6 % (0.0-1.0); EOSINOPHILS # (AUTO) 0.4 (0.0-0.4); EOSINOPHILS % 7.8 % (0.0-6.0); HEMATOCRIT 29.2 % (38.2-49.6); LYMPHOCYTES % 19.8 % (18.0-39.1); MEAN CORPUSCULAR HEMOGLOBIN 28.4 pg (28-32); MEAN CORPUSCULAR HGB CONC 30.8 g/dL (31-35); MEAN CORPUSCULAR VOLUME 92.1 fL (81-99); MONOCYTES # (AUTO) 0.9 (0.2-0.8); NEUTROPHILS # (AUTO) 2.7 (2.1-6.9); NEUTROPHILS % 54.2 % (38.7-80.0); PLATELET COUNT 182 x10e3/uL (140-360); RED BLOOD COUNT 3.17 x10e6/uL (4.3-5.7); RED CELL DISTRIBUTION WIDTH 14.3 % (11.7-14.4)
[2018-12-25 10:49] LABS: ALBUMIN 2.6 g/dL (3.5-5.0); ALBUMIN/GLOBULIN RATIO 0.9 (0.8-2.0); ANION GAP 11.2 mmol/L (8-16); CALCIUM 8.9 mg/dL (8.4-10.2); POTASSIUM 4.2 mmol/L (3.5-5.1)
[2018-12-25] MEDS ORDERED: TRAMADOL HCL 50 MG TAB PO PRN ×2 (14:45→15:00)
[2018-12-25] MEDS ORDERED: ACETAMINOPHEN 325 MG TAB PO PRN (15:00)
[2018-12-25] MEDS ORDERED: ONDANSETRON HCL INJ 2MG/ML 2ML 2 MG/ML VIAL IV PRN (15:00)
[2018-12-25] MEDS ORDERED: MELATONIN 5 MG TABLET PO PRN (15:00)
[2018-12-25 15:13] VITALS: BP 148/82
[2018-12-25 15:14] VITALS: BP 148/82
[2018-12-25 15:15] VITALS: BP 148/82
[2018-12-25] MEDS ORDERED: SODIUM CHLORIDE 0.9% 250ML 250 ML ONE (15:34)
[2018-12-25 15:40] VITALS: BP 148/82
[2018-12-25] MEDS: GLIPIZIDE 5 MG TAB PO SCH (16:47)
[2018-12-25] MEDS: CEFTRIAXONE SOD 1 GM/NS 50 ML 50 ML IV SCH (16:47)
[2018-12-25] MEDS: WARFARIN SOD 2 MG TAB PO SCH (16:47)
--- NOTE | 2018-12-25 17:07 | NUR ---
MD Walters's office notified at this time per consult on RLE Cellulitis, spoke with
--- NOTE | 2018-12-25 17:10 | NUR ---
MD Gu per Dr. Baird office called and message left for routine consult of CHF.
[2018-12-25] MEDS: VANCOMYCIN 1GM/NS 250 ML 250 ML IV SCH (17:25)
--- NOTE | 2018-12-25 17:37 | NUR ---
Dr. Walters returned phone call for consult, will follow up with pt in the morning.
[2018-12-25] MEDS ORDERED: FUROSEMIDE INJ 10 MG/ML 2 ML VIAL IV SCH (18:00)
--- NOTE | 2018-12-25 19:00 | NUR ---
RECEIVED PATIENT IN BEDSIDE SHIFT REPORT. PATIENT REPORTS NO PAIN AT THIS TIME. NO S&S OF DISTRESS NOTED. CELLULITIS MARKED ON RLE, ALL REDNESS AND SWELLING IS BELOW THE LINE MARKED. RLE SHOWS EDEMA, REDNESS AND SLIGHTLY WARM TO TOUCH. LLE SHOWS ONLY EDEMA. AT BEDSIDE. BED LOCKED IN LOWEST POSITION, SIDE RAILS UPX2, CALL LIGHT IN REACH.
[2018-12-25 20:00] VITALS: BP 160/84
[2018-12-25] MEDS: ATORVASTATIN 20 MG TAB PO SCH (21:08)
--- NOTE | 2018-12-25 22:20 | NUR ---
ASSISTED PATIENT TO RESTROOM WITH HELP OF ONE OTHER STAFF MEMBER AND WALKER. PATIENT MOSTLY STEADY, BUT R LEG BUCKLED A FEW TIMES. EDUCATED ON PROPER USE OF WALKER PATIENT REPORTS HE HAS NOT USED ONE BEFORE. BEDSIDE COMMODE PROVIDED IN CASE PATIENT FEELS TOO WEAK TO WALK TO RESTROOM, PATIENT STATES HE WILL DO WHATEVER HE HAS TO IN ORDER TO MAKE IT TO THE RESTROOM. REMINDED PATIENT TO ALWAYS CALL BEFORE ATTEMPTING TO GET OUT OF BED. PATIENT AND VERBALIZED UNDERSTANDING.
[2018-12-25 23:08] VITALS: BP 160/84
[2018-12-26] VITALS (8 sets, daily range): BP systolic 120–176; BP diastolic 60–89
[2018-12-26] MEDS: HYDRALAZINE HCL 20 MG/ML VIAL IV PRN ×2 (00:01→04:21)
--- NOTE | 2018-12-26 02:51 | Consultation ---
DATE OF CONSULTATION: 12/25/2018 Cardiology Consult Note REASON FOR CONSULT: Lower extremity swelling. CHIEF COMPLAINT: Lower extremity swelling and pain. HISTORY OF PRESENT ILLNESS: This is a 73-year-old man with history of mechanical aortic valve, CAD, status post recent stent and chronic systolic heart failure, status post permanent pacemaker placement, who presents with several weeks of worsening lower extremity edema and shortness of breath. He says he has been compliant with his dual antiplatelet therapy and Coumadin. Denies any ongoing chest pain, palpitation, dizziness, or syncope. REVIEW OF SYSTEMS: As per HPI, otherwise negative. PAST MEDICAL HISTORY: 1. Hypertension. 2. Hyperlipidemia. 3. Diabetes. 4. Coronary artery disease, status post recent stenting. 5. Aortic stenosis status post aortic valve replacement with a mechanical aortic valve on Coumadin. 6. Chronic systolic heart failure. 7. History of AV block, status post pacemaker placement. 8. Chronic venous insufficiency. SOCIAL HISTORY: He does not smoke, drink, or abuse drugs. FAMILY HISTORY: Noncontributory. MEDICATIONS: Outpatient medications reviewed. Please see MAR for reconciled medications. ALLERGIES: NO KNOWN DRUG ALLERGIES. PHYSICAL EXAMINATION: VITAL SIGNS: Temperature afebrile, pulse 70, respiratory rate 20, blood pressure 148/82, and saturating 94% on 2 L nasal cannula. GENERAL: Elderly man in no acute distress. CARDIOVASCULAR: Regular rate and rhythm, mechanical S2. No murmurs, rubs, or gallops. LUNGS: Coarse breath sounds in bilateral bases. ABDOMEN: Soft, nontender, and nondistended. NEURO AND PSYCH: Alert and oriented. INPATIENT MEDICATIONS: Reviewed. TELEMETRY DATA: Reviewed, shows paced rhythm. Cardiovascular imaging, echocardiogram has been ordered and is pending. ASSESSMENT: 1. Acute on chronic systolic heart failure exacerbation. 2. Lower extremity swelling and cellulitis. 3. Coronary artery disease status post recent PCI. 4. History of mechanical aortic valve replacement, on Coumadin. PLAN: Continue home Coumadin dosing and gentle IV diuretics, antibiotics per primary team. Continue antiplatelet therapy given and troponins were negative. BNP is 286. Thank you for this consult. We will continue to follow. MD LAURENT Monteiro/MODL /[id number]
[2018-12-26 03:29] LABS: BASOPHILS # (AUTO) 0.1 (0.0-0.1); BASOPHILS % 0.8 % (0.0-1.0); EOSINOPHILS # (AUTO) 0.4 (0.0-0.4); EOSINOPHILS % 5.5 % (0.0-6.0); HEMATOCRIT 33.4 % (38.2-49.6); HEMOGLOBIN 10.6 g/dL (14.0-18.0); LYMPHOCYTES # (AUTO) 1.4 (1.0-3.2); LYMPHOCYTES % 17.1 % (18.0-39.1); MEAN CORPUSCULAR HEMOGLOBIN 28.5 pg (28-32); MEAN CORPUSCULAR HGB CONC 31.7 g/dL (31-35); MEAN CORPUSCULAR VOLUME 89.8 fL (81-99); MONOCYTES # (AUTO) 1.1 (0.2-0.8); MONOCYTES % 13.7 % (4.4-11.3); NEUTROPHILS # (AUTO) 4.9 (2.1-6.9); NEUTROPHILS % 62.3 % (38.7-80.0); PLATELET COUNT 209 x10e3/uL (140-360); RED BLOOD COUNT 3.72 x10e6/uL (4.3-5.7); RED CELL DISTRIBUTION WIDTH 14.2 % (11.7-14.4)
[2018-12-26 03:47] LABS: ANION GAP 14.3 mmol/L (8-16); CALCIUM 9.7 mg/dL (8.4-10.2); CREATININE, SERUM 1.79 mg/dL (0.72-1.25); POTASSIUM 4.3 mmol/L (3.5-5.1)
[2018-12-26] MEDS ORDERED: FUROSEMIDE INJ 10 MG/ML 2 ML VIAL IV SCH (06:00)
[2018-12-26] MEDS ORDERED: FUROSEMIDE40 MG PO (07:57)
[2018-12-26] MEDS ORDERED: ZETIA10 MG PO (08:00)
[2018-12-26] MEDS ORDERED: GLIPIZIDE5 MG PO (08:01)
[2018-12-26] MEDS ORDERED: WARFARIN SODIUM2 MG PO (08:03)
[2018-12-26] MEDS: GLIPIZIDE 5 MG TAB PO SCH ×2 (08:09→17:02)
[2018-12-26] MEDS: FUROSEMIDE INJ 10 MG/ML 4 ML VIAL IV SCH ×2 (08:09→17:02)
[2018-12-26] MEDS: OLMESARTAN 20 MG TAB PO SCH (08:19)
[2018-12-26] MEDS: ASPIRIN 81 MG CHEW TAB PO SCH (08:19)
[2018-12-26] MEDS: CARVEDILOL 40 MG CAPCR PO SCH (08:20)
[2018-12-26] MEDS: AMIODARONE HCL 200 MG TAB PO SCH (08:20)
[2018-12-26] MEDS: AMLODIPINE BESYLATE 5 MG TAB PO SCH (08:20)
[2018-12-26] MEDS: EZETIMIBE 10 MG TAB PO SCH (08:20)
[2018-12-26 08:58] LABS: INR 2.07
[2018-12-26] MEDS ORDERED: NON-FORMULARY MEDICATION (Carvedilol Phosphate (Coreg Cr) 80 MG) PO SCH (09:00)
[2018-12-26] MEDS ORDERED: VALSARTAN 160 MG TAB PO SCH (09:00)
[2018-12-26] MEDS ORDERED: OLMESARTAN 20 MG TAB PO SCH (09:00)
[2018-12-26] MEDS ORDERED: NON-FORMULARY MEDICATION (Olmesartan Medoxomil (Benicar) 40 MG) PO SCH (09:00)
[2018-12-26] MEDS ORDERED: WARFARIN SODIUM 4 MG PO SCH (09:00)
[2018-12-26] MEDS ORDERED: NON-FORMULARY MEDICATION (Amiodarone Hcl (Pacerone) 100 MG) PO SCH (09:00)
[2018-12-26] MEDS ORDERED: CLOPIDOGREL BISULFATE 75 MG TAB PO SCH (09:00)
--- NOTE | 2018-12-26 14:39 | Consultation ---
DATE OF CONSULTATION: 12/26/2018 REASON FOR CONSULTATION: Right lower extremity swelling and pain. HISTORY OF PRESENTING ILLNESS: This is a 73-year-old male with past medical history of congestive heart failure, type 2 diabetes, peripheral neuropathy, hyperlipidemia, hypertension, chronic venous insufficiency, who was admitted through the emergency room two years ago with shortness of breath and worsening lower extremity edema. He relates to being treated as an outpatient with oral antibiotics as well as anti-platelet therapy. The patient currently denies any chest pain or shortness of breath. Denies nausea, vomiting, fever, and chills as well. PAST MEDICAL HISTORY: Type 2 diabetes, peripheral neuropathy, coronary artery disease with stenting, aortic valve replacement, CHF, chronic venous insufficiency. SOCIAL HISTORY: Denies smoking, drinking, and illicit drug usage. FAMILY HISTORY: Noncontributory. MEDICATIONS: Per the chart. ALLERGIES: NO KNOWN DRUG ALLERGIES. PHYSICAL EXAMINATION: GENERAL: Alert and oriented x3, in no apparent distress. VITAL SIGNS: Today, temperature 97.0, heart rate 79, respiratory rate 20, blood pressure 176/89, pulse ox 96% on room air. PROBLEM FOCUSED LOWER EXTREMITY PHYSICAL EXAM: VASCULAR: Dorsalis pedis and posterior tibial pulses are faintly palpable. Capillary refill time is approximately 4-5 seconds in all remaining digits. Erythema and edema are noted to the right lower extremity and marked out with a marker and appeared to be improved since the mino was made. No warmth is noted. NEUROLOGICAL: Sensation is diminished to light touch bilateral. MUSCULOSKELETAL: History of right hallux amputation. DERMATOLOGICAL: Greater than 2 cm of erythema, edema are noted to the right lower extremity in the area of the distal one third of the tibia. There are no open wounds or blister formation. Does not appear to be any focal fluid collection that would indicate an abscess. LABORATORY DATA: White blood cell count is 7.9, hemoglobin 10.6, hematocrit 33.4, and platelet count is 209. Sodium 138, potassium 4.3, chloride 100, CO2 28, BUN 41, creatinine 1.79. BNP is 286.7. ASSESSMENT: 1. Lower extremity edema with cellulitis. 2. Congestive heart failure exacerbation. 3. Type 2 diabetes with peripheral neuropathy. 4. History of right hallux amputation. PLAN: The patient was seen and evaluated. Discussed condition and treatment options with the patient in detail. At this time, would recommend continued IV antibiotics. The patient does not have any open wounds. He would require local wound care at this time. Due to CHF exacerbation, we will recommend holding off on compressive dressings in order to avoid over exertion. We will continue to monitor with IV antibiotics. Does not appear that the patient has any focal fluid collection that would require incision and drainage procedure. This patient is well known to us from prior admissions as well as the patient in the office. The likely cause of the erythema to the right lower extremity is venous stasis dermatitis as well, which will likely resolve once edema is resolved as well. REGINA Alexander/WM /[id number]
[2018-12-26] MEDS: VANCOMYCIN 1GM/NS 250 ML 250 ML IV SCH (14:57)
[2018-12-26] MEDS: CEFTRIAXONE SOD 1 GM/NS 50 ML 50 ML IV SCH (14:57)
--- NOTE | 2018-12-26 15:13 | NUR ---
Nutrition Screen Note RD Recommendation for Physician: -Continue current diet per and FR per MD. -Consider 1800 ADA diet pending lab trends. Plan of Care: RD following, monitoring for tolerance and adequacy Nutrition reason for involvement: Nutrition Risk Trigger-MST 3 Primary Diagnose(s): CHF, cenous stasis dermatitis PMH: congestive heart failure, type 2 diabetes, peripheral neuropathy, hyperlipidemia, hypertension, chronic venous insufficiency Ht: 74 in Wt: 249 lb BMI: 32.0 kg/m2 IBW: [address] Assessment: 12/26: 73 YOM admitted for CHF with PMH listed above. Pt was seen resting in bed. Pt reported a good appetite and denied any recent weight loss. Pt was 260 lbs in June, suggesting a 4.2% weight loss within 6 months which is not significant. Pt denied N/V/C/D/chewing or swallowing issues as well as any food allergies. At this time, the pt denied education and had no other questions or concerns. Chart reviewed. Labs and meds reviewed. Will continue to monitor. Current Diet: cardiac diet Malnutrition Evaluation 12/26 The patient does not meet criteria for a specified degree of malnutrition at this time. Will re-evaluate at follow-up as appropriate. Diet Education Needs Assessment: Diet education indicated, pt did not want is at this time. Nutrition Care Level: low Signed: Sue Melgoza, RD, LD
--- NOTE | 2018-12-26 15:36 | NUR ---
WOUNDCARE CONSULT FOR 73 YO M HX OF CHF AND VENOUS STASIS LABS: WBC- 7.94,HGB- 10.6,GLUCOSE - 79 VENOUS DOPPLER 12/24 RESULTS PENDING BLOOD CULTURE SHOWS NO GROWTH PATIENT PRESENTS WITH RIGHT LOWER LEG CELLULITIS WITH 2 + PITTING EDEMA PULSES NOTED NO OPEN AREAS NOTED IN SKIN NURSING TO RECONSULT WOUND CARE NEEDED FOR FUTURE NEEDS OR ASSISTANCE Addendum: 12/26/18 at 1543 by Louis Hammer RN Amended: Links added.
[2018-12-26] MEDS: WARFARIN SOD 2 MG TAB PO SCH (17:02)
--- NOTE | 2018-12-26 20:06 | Progress Note ---
DATE: 12/26/2018 Cardiology Progress Note SUBJECTIVE: No major events overnight. OBJECTIVE: VITAL SIGNS: Temperature afebrile, pulse 68, respiratory rate 22, blood pressure 135/67, and saturating 96%. GENERAL: Elderly white man, in no acute distress. CARDIOVASCULAR: Regular rate and rhythm. Mechanical S2. No murmurs, rubs, or gallops. LUNGS: Clear to auscultation bilaterally. ABDOMEN: Soft, nontender, and nondistended. NEURO AND PSYCH: Alert and oriented to person, place, and time. Normal affect. LOWER EXTREMITIES: Bilateral lower extremity chronic venous stasis changes and discoloration, right greater than left with 3+ edema on the right and 2+ edema on the left. Some induration suspicious of cellulitis, possibly on the right. INPATIENT MEDICATIONS: Reviewed. LABORATORY DATA: Reviewed. TELEMETRY: Reviewed. Shows paced rhythm. ASSESSMENT AND PLAN: 1. Akivd-xh-rhlogku systolic heart failure exacerbation. 2. Lower extremity swelling and cellulitis. 3. Coronary artery disease, status post recent PCI. 4. History of mechanical aortic valve replacement, on Coumadin. 5. Bilateral chronic venous insufficiency and lymphedema. PLAN: Continue current cardiovascular medication and IV diuretic. Doing well from cardiovascular standpoint. INR therapeutic. Continue home Coumadin dosing. Thank you for this consult. We will continue to follow. MD LAURENT Monteiro/WM /[id number]
[2018-12-26] MEDS: ATORVASTATIN 20 MG TAB PO SCH (20:23)
[2018-12-27] VITALS (9 sets, daily range): BP systolic 120–154; BP diastolic 61–79
--- NOTE | 2018-12-27 00:23 | Consultation ---
DATE OF CONSULTATION: REASON FOR CONSULTATION: Incision cellulitis of the leg, failing oral antibiotic. HISTORY OF PRESENT ILLNESS: The patient is a 73-year-old white male, who a month ago had a mechanical fall resulted in a fracture of his right hip, had surgery. He was transferred to skilled care facility. The patient is coming now with redness and swelling of his right leg. The patient denies history of trauma or just started with redness and swelling, which was getting progressively worse from the toes all the way to below the knee, feeling feverish and chills, so he came here. The patient who does have underlying history of mechanical aortic valve replacement, coronary artery disease, status post stent placement, chronic congestive heart failure, obesity, status post permanent pacemaker and the patient comes in with redness and swelling of his leg. The patient has been having some gradual worsening of shortness of breath and swelling of his legs over the last few weeks. He has been seen by Cardiology. Infectious Disease was asked to make a list of his antibiotic. He is currently lying in bed comfortable, family is at the bedside. PAST MEDICAL HISTORY: Hypertension, hyperlipidemia, diabetes mellitus with neuropathy, coronary artery disease, status post stenting, aortic stenosis, status post aortic valve replacement with mechanical valve on Coumadin, chronic congestive heart failure, history of AV block, status post pacemaker placement, chronic venous insufficiency. PAST SURGICAL HISTORY: As mentioned above. ALLERGIES: NKA. SOCIAL HISTORY: There is no smoking, drug abuse, or alcohol abuse. FAMILY HISTORY: Hypertension. REVIEW OF SYSTEMS: At the present time. HEENT: There is no headache, visual changes, hearing changes. GI: There is no nausea, no vomiting, no diarrhea. CARDIAC: There is no chest pain or arrhythmia. NEURO: No seizure activity. SKIN: There is no rash except on the leg. He is weak. LABORATORY DATA: His blood culture is still pending. White count 7.94, hemoglobin 10.6. Sodium 138, potassium 4.3, creatinine 1.79. When he first came in, it was 2.00 with BNP of 196. MEDICATION LIST: He is currently on: 1. Lasix. 2. Coumadin. 3. Ceftriaxone. 4. Vancomycin. 5. Zetia. 6. Coreg. 7. Norvasc. 8. Aspirin. 9. Zofran. PHYSICAL EXAMINATION: GENERAL: He is currently alert, oriented, does not seem to be in acute distress. VITAL SIGNS: Stable, currently afebrile. HEENT: Not icteric. NECK: Supple. CHEST: Clear. HEART: S1-S2. No S3, S4 or murmur. ABDOMEN: Soft, obese. No tenderness, no hepatosplenomegaly. EXTREMITIES: No edema. SKIN: There is just rash on right lower extremity as mentioned above, which is from his toes to below the knee. IMPRESSION: 1. Cellulitis of the right leg. 2. Bilateral lower extremities edema due to fluid overload. 3. Congestive heart failure, acute on chronic. 4. Obesity. 5. Diabetes mellitus. 6. Concern about healthcare associated infection, the patient has been in the hospital recently as well as to skilled care facility. So, agree with choice of vancomycin and Rocephin. Adjust for his kidney function on vancomycin. We will follow levels. Keep the foot elevated, thigh-high elastic stocking. We will follow with you clinically. Gentle diuresis. Cardiology is following to maximize his cardiac condition. 7. Diabetes with neuropathy. 8. Obesity. 9. Debility. 10. We will follow with you. MD ARMANDO Jhaveri/MODL /[id number]
[2018-12-27 02:47] LABS: BASOPHILS # (AUTO) 0.1 (0.0-0.1); BASOPHILS % 0.9 % (0.0-1.0); EOSINOPHILS # (AUTO) 0.4 (0.0-0.4); HEMOGLOBIN 9.8 g/dL (14.0-18.0); LYMPHOCYTES % 17.7 % (18.0-39.1); MEAN CORPUSCULAR HEMOGLOBIN 28.4 pg (28-32); MEAN CORPUSCULAR HGB CONC 31.6 g/dL (31-35); MEAN CORPUSCULAR VOLUME 89.9 fL (81-99); MONOCYTES % 17.5 % (4.4-11.3); NEUTROPHILS # (AUTO) 3.4 (2.1-6.9); NEUTROPHILS % 57.6 % (38.7-80.0); PLATELET COUNT 180 x10e3/uL (140-360); RED BLOOD COUNT 3.45 x10e6/uL (4.3-5.7); RED CELL DISTRIBUTION WIDTH 14.5 % (11.7-14.4)
[2018-12-27 02:56] LABS: ANION GAP 14.2 mmol/L (8-16); CALCIUM 9.1 mg/dL (8.4-10.2); CREATININE, SERUM 1.96 mg/dL (0.72-1.25); POTASSIUM 4.2 mmol/L (3.5-5.1)
[2018-12-27] MEDS: FUROSEMIDE INJ 10 MG/ML 4 ML VIAL IV SCH ×2 (05:17→18:55)
[2018-12-27] MEDS: CARVEDILOL 40 MG CAPCR PO SCH (08:30)
[2018-12-27] MEDS: AMLODIPINE BESYLATE 5 MG TAB PO SCH (08:30)
[2018-12-27] MEDS: EZETIMIBE 10 MG TAB PO SCH (08:30)
[2018-12-27] MEDS: AMIODARONE HCL 200 MG TAB PO SCH (08:30)
[2018-12-27] MEDS: ASPIRIN 81 MG CHEW TAB PO SCH (08:30)
[2018-12-27] MEDS: OLMESARTAN 20 MG TAB PO SCH (08:30)
[2018-12-27] MEDS: GLIPIZIDE 5 MG TAB PO SCH ×2 (08:30→17:00)
--- NOTE | 2018-12-27 09:59 | Progress Note ---
DATE: 12/27/2018 SUBJECTIVE: A 73-year-old male with past medical history of CHF, type 2 diabetes, peripheral neuropathy, and chronic venous insufficiency, and lower extremity cellulitis, who was admitted to the emergency room 3 days ago. The patient currently denies nausea, vomiting, fever, chills, chest pain, and does have occasional shortness of breath. No new acute issues overnight. PHYSICAL EXAMINATION: GENERAL: Alert and oriented x3, in no apparent distress. VITAL SIGNS: Temperature 97.8, heart rate 64, respiratory rate 16, blood pressure 138/61, pulse ox improved 94% on room air on room air. PROBLEM FOCUSED LOWER EXTREMITY PHYSICAL EXAM: Vascular, dorsalis pedis and posterior tibial pulses are faintly palpable. Capillary refill time is approximately 4-5 seconds to all remaining digits. Erythema and edema to the right lower extremity is noted and appears improved since previous visit. No warmth is noted. NEUROLOGICAL: Sensation is diminished to light touch bilateral. MUSCULOSKELETAL: History of right hallux amputation. DERMATOLOGICAL: There still remains to be greater than 2 cm of erythema, edema, and warmth to the right lower extremity in the distal one-third of the tibia. No open wounds or blister formation is present. Does not appear to be any local fluid collection that would indicate an abscess. LABORATORY DATA: White blood cell count is 5.8, hemoglobin 9.8, hematocrit 31.0, and platelet count is 180. Sodium 139, potassium 4.2, chloride 100, CO2 of 29, BUN 46, creatinine 1.96. ASSESSMENT: 1. Lower extremity edema with cellulitis. 2. Congestive heart failure exacerbation. 3. Type 2 diabetes, peripheral neuropathy. 4. History of right hallux amputation. PLAN: The patient was seen and evaluated. Discussed condition and treatment options with the patient in detail. At this time, continue to recommend IV antibiotics per the primary team and Infectious Disease. The patient does not have any open wounds or ulcerations. No local wound care is required and do not recommend any incision and drainage. I would recommend keeping the lower extremities elevated and a compression dressing. The Podiatry Service will continue to monitor as an inpatient. REGINA Alexander/MODL /[id number]
--- NOTE | 2018-12-27 15:05 | Progress Note ---
DATE: 12/27/2018 Cardiology Progress Note SUBJECTIVE: The patient denies chest pain or shortness of breath. OBJECTIVE: VITAL SIGNS: Temperature 97.3 degrees, pulse 56, respiratory rate 20, blood pressure 154/71, and oxygen saturation 93% on room air. GENERAL: Awake, alert, no acute distress, elderly man. LUNGS: Clear to auscultation bilaterally. No wheezes or crackles. CARDIOVASCULAR: Normal rate. Regular rhythm. Mechanical S2. No murmur. ABDOMEN: Soft and nontender. EXTREMITIES: Skin changes consistent with chronic venous stasis are present, 3+ edema on the right, 2+ edema on the left. CARDIAC MEDICATIONS: Zetia 10 mg p.o. daily, olmesartan 40 mg p.o. daily, carvedilol 80 mg p.o. daily, amiodarone 100 mg p.o. daily, aspirin 81 mg p.o. daily, amlodipine 5 mg p.o. daily, furosemide 40 mg IV b.i.d., atorvastatin 20 mg p.o. at bedtime, and warfarin 4 mg p.o. daily. LABORATORY DATA: WBC 5.87, hemoglobin 9.8, hematocrit 31, and platelets 180. Sodium 139, potassium 4.2, chloride 100, CO2 29, BUN 46, and creatinine 1.96. TELEMETRY: V-paced. IMPRESSION: 1. Ybodv-oa-bnwewif systolic heart failure. 2. Left lower extremity cellulitis. 3. Coronary artery disease, status post recent PCI. 4. History of mechanical aortic valve replacement, on Coumadin. 5. Chronic venous insufficiency. 6. Lymphedema. 7. High-grade AV block with symptomatic bradycardia, status post dual-chamber pacemaker placement. 8. Peripheral arterial disease. 9. Hypertension. 10. Diabetes mellitus. 11. Hyperlipidemia. RECOMMENDATIONS: Continue warfarin. INR is therapeutic. Continue IV diuretics. The patient continues to be negative. Continue current cardiac medications, otherwise. Antibiotics per Infectious Disease. Thank you for this consult. We will continue to follow. Erika Gu MD ABS/MODL /[id number]
[2018-12-27] MEDS: CEFTRIAXONE SOD 1 GM/NS 50 ML 50 ML IV SCH (16:02)
[2018-12-27] MEDS ORDERED: SODIUM CHLORIDE 0.9% 250ML 250 ML ONE (16:05)
[2018-12-27] MEDS: VANCOMYCIN 1GM/NS 250 ML 250 ML IV SCH (16:30)
--- NOTE | 2018-12-27 16:30 | NUR ---
vancomycin trough drawn, results showed 10.9. per PROTOHISTORIAN okay to give vancomycin dose.
[2018-12-27] MEDS: WARFARIN SOD 2 MG TAB PO SCH (17:00)
[2018-12-27] MEDS: ATORVASTATIN 20 MG TAB PO SCH (20:45)
[2018-12-28] VITALS (7 sets, daily range): BP systolic 125–147; BP diastolic 61–78
[2018-12-28 04:21] LABS: BASOPHILS % 0.7 % (0.0-1.0); EOSINOPHILS # (AUTO) 0.3 (0.0-0.4); EOSINOPHILS % 5.3 % (0.0-6.0); HEMATOCRIT 33.1 % (38.2-49.6); HEMOGLOBIN 10.6 g/dL (14.0-18.0); LYMPHOCYTES # (AUTO) 1.2 (1.0-3.2); LYMPHOCYTES % 20.1 % (18.0-39.1); MEAN CORPUSCULAR HEMOGLOBIN 28.4 pg (28-32); MEAN CORPUSCULAR VOLUME 88.7 fL (81-99); MONOCYTES # (AUTO) 0.9 (0.2-0.8); MONOCYTES % 14.5 % (4.4-11.3); NEUTROPHILS # (AUTO) 3.6 (2.1-6.9); NEUTROPHILS % 59.1 % (38.7-80.0); PLATELET COUNT 186 x10e3/uL (140-360); RED BLOOD COUNT 3.73 x10e6/uL (4.3-5.7); RED CELL DISTRIBUTION WIDTH 14.3 % (11.7-14.4)
[2018-12-28 04:46] LABS: ANION GAP 16.1 mmol/L (8-16); CALCIUM 9.3 mg/dL (8.4-10.2); CREATININE, SERUM 2.08 mg/dL (0.72-1.25); POTASSIUM 4.1 mmol/L (3.5-5.1)
[2018-12-28] MEDS: FUROSEMIDE INJ 10 MG/ML 4 ML VIAL IV SCH ×2 (05:25→17:00)
[2018-12-28] MEDS: GLIPIZIDE 5 MG TAB PO SCH ×2 (08:30→17:00)
[2018-12-28] MEDS: EZETIMIBE 10 MG TAB PO SCH (08:30)
[2018-12-28] MEDS: CARVEDILOL 40 MG CAPCR PO SCH (08:30)
[2018-12-28] MEDS: ASPIRIN 81 MG CHEW TAB PO SCH (08:30)
[2018-12-28] MEDS: AMIODARONE HCL 200 MG TAB PO SCH (08:30)
[2018-12-28] MEDS: OLMESARTAN 20 MG TAB PO SCH (08:30)
[2018-12-28] MEDS: AMLODIPINE BESYLATE 5 MG TAB PO SCH (08:30)
[2018-12-28 09:02] LABS: INR 2.54; PROTHROMBIN TIME 28.1 seconds (11.9-14.5)
--- NOTE | 2018-12-28 10:35 | Progress Note ---
DATE: 12/28/2018 SUBJECTIVE: This is a 73-year-old male with past medical history of CHF, type 2 diabetes, peripheral neuropathy, chronic venous insufficiency and cellulitis. The patient is seen at bedside this morning. Denies nausea, vomiting, fever, chills, chest pain, and relates to no more shortness of breath. No acute issues overnight. PHYSICAL EXAMINATION: GENERAL: Alert and oriented x3, in no apparent distress. VITAL SIGNS: Today, temperature 97.5, heart rate 61, respiratory rate 16, blood pressure 147/75, pulse ox is 93% on room air. PROBLEM FOCUSED LOWER EXTREMITY PHYSICAL EXAM: Vascular, dorsalis pedis, and posterior tibial pulses are faintly palpable. Capillary refill time is approximately 4-5 seconds in all remaining digits. Erythema and edema to the right lower extremity was noted and appeared to be significantly improved since previous visit. No warmth or tenderness is present. NEUROLOGICAL: Sensation is diminished to light touch bilateral. MUSCULOSKELETAL: History of right hallux amputation. DERMATOLOGICAL: Erythema and edema noted to the distal aspect of the anterior tibia is significantly improved on this visit. Did not appear to be any focal fluid collection noted to indicate an abscess. LABORATORY DATA: White blood cell count is 6.07, hemoglobin 10.6, hematocrit 33.1, platelet count 186, neutrophil percentage is 59. Sodium 139, potassium 4.1, chloride 100, BUN 49, creatinine 2.0. ASSESSMENT: 1. Lower extremity edema with cellulitis. 2. Chronic venous insufficiency, improving. 3. Congestive heart failure exacerbation. 4. Type 2 diabetes peripheral neuropathy. 5. Right hallux amputation. PLAN: The patient was seen and evaluated. Discussed condition and treatment options with patient in detail. Cellulitis and edema continues to be improving to the right lower extremity. Continue IV antibiotics per Infectious Disease. No open wounds, ulcerations, or focal fluid collections are present. Continue to recommend to keep lower extremities elevated with compression dressing. Podiatry Service will continue to monitor as inpatient. REGINA Alexander/WM /[id number]
[2018-12-28] MEDS: CEFTRIAXONE SOD 1 GM/NS 50 ML 50 ML IV SCH (14:50)
--- NOTE | 2018-12-28 15:16 | Progress Note ---
DATE: 12/28/2018 Cardiology Progress Note SUBJECTIVE: The patient denies chest pain or shortness of breath. OBJECTIVE: VITAL SIGNS: Temperature 96.1 degrees, pulse 61, respiratory rate 20, blood pressure 125/74, oxygen saturation 96% on room air. GENERAL: Awake, alert, in no acute distress. LUNGS: Clear to auscultation bilaterally. No wheezes or crackles. CARDIOVASCULAR: Normal rate, regular rhythm, mechanical S2. No murmur. ABDOMEN: Soft, nontender. EXTREMITIES: Skin changes consistent with chronic venous stasis, 3+ pitting edema on the right, 2+ on the left. Erythema is improving. CARDIAC MEDICATIONS: Zetia 10 mg p.o. daily, olmesartan 40 mg p.o. daily, carvedilol 80 mg p.o. daily, amiodarone 100 mg p.o. daily, aspirin 81 mg p.o. daily, amlodipine 5 mg p.o. daily, furosemide 40 mg IV b.i.d., atorvastatin 20 mg p.o. at bedtime, warfarin 4 mg p.o. daily. LABORATORY DATA: WBC 6.07, hemoglobin 10.6, hematocrit 33.1, platelets 186. Sodium 139, potassium 4.1, chloride 100, CO2 of 27, BUN 49, creatinine 2.08. INR 2.54. TELEMETRY: V-paced. IMPRESSION: 1. Acute on chronic systolic heart failure. 2. Left lower extremity cellulitis. 3. Coronary artery disease status post recent percutaneous coronary intervention. 4. History of mechanical aortic valve replacement on Coumadin. 5. Chronic venous insufficiency. 6. Lymphedema. 7. High-grade atrioventricular block with symptomatic bradycardia, status post dual-chamber pacemaker placement. 8. Peripheral arterial disease. 9. Hypertension. 10. Hyperlipidemia. 11. Diabetes mellitus. RECOMMENDATIONS: Continue warfarin. INR is therapeutic. Continue IV diuretics. Patient's creatinine is relatively stable. Continue current cardiac medications. The patient is stable from a cardiac standpoint. Antibiotics per Infectious Disease. Thank you for this consult. We will continue to follow. Erika Gu MD ABS/MODL /[id number]
[2018-12-28] MEDS: VANCOMYCIN 1GM/NS 250 ML 250 ML IV SCH (15:25)
[2018-12-28] MEDS: WARFARIN SOD 2 MG TAB PO SCH (16:59)
[2018-12-28] MEDS: ATORVASTATIN 20 MG TAB PO SCH (21:58)
[2018-12-29] VITALS (8 sets, daily range): BP systolic 104–159; BP diastolic 64–81
[2018-12-29 04:29] LABS: BASOPHILS # (AUTO) 0.1 (0.0-0.1); BASOPHILS % 0.9 % (0.0-1.0); EOSINOPHILS # (AUTO) 0.4 (0.0-0.4); EOSINOPHILS % 6.4 % (0.0-6.0); HEMATOCRIT 31.6 % (38.2-49.6); HEMOGLOBIN 10.1 g/dL (14.0-18.0); LYMPHOCYTES # (AUTO) 1.2 (1.0-3.2); LYMPHOCYTES % 20.7 % (18.0-39.1); MEAN CORPUSCULAR HEMOGLOBIN 28.5 pg (28-32); MEAN CORPUSCULAR VOLUME 89.3 fL (81-99); MONOCYTES # (AUTO) 0.9 (0.2-0.8); MONOCYTES % 16.8 % (4.4-11.3); NEUTROPHILS # (AUTO) 3.1 (2.1-6.9); NEUTROPHILS % 54.7 % (38.7-80.0); PLATELET COUNT 192 x10e3/uL (140-360); RED BLOOD COUNT 3.54 x10e6/uL (4.3-5.7); RED CELL DISTRIBUTION WIDTH 14.2 % (11.7-14.4)
[2018-12-29 04:46] LABS: ANION GAP 14.8 mmol/L (8-16); CALCIUM 9.1 mg/dL (8.4-10.2); CREATININE, SERUM 2.02 mg/dL (0.72-1.25); POTASSIUM 3.8 mmol/L (3.5-5.1)
[2018-12-29] MEDS: FUROSEMIDE INJ 10 MG/ML 4 ML VIAL IV SCH ×2 (05:31→16:34)
--- NOTE | 2018-12-29 07:25 | NUR ---
Report given to oncoming SHAN Rogers, walking round done.
[2018-12-29] MEDS: OLMESARTAN 20 MG TAB PO SCH (10:43)
[2018-12-29] MEDS: ASPIRIN 81 MG CHEW TAB PO SCH (10:43)
[2018-12-29] MEDS: EZETIMIBE 10 MG TAB PO SCH (10:43)
[2018-12-29] MEDS: AMLODIPINE BESYLATE 5 MG TAB PO SCH (10:43)
[2018-12-29] MEDS: GLIPIZIDE 5 MG TAB PO SCH ×2 (10:43→16:34)
[2018-12-29] MEDS: CARVEDILOL 40 MG CAPCR PO SCH (10:43)
[2018-12-29] MEDS: AMIODARONE HCL 200 MG TAB PO SCH (10:43)
[2018-12-29 11:04] LABS: INR 2.57; PROTHROMBIN TIME 28.3 seconds (11.9-14.5)
--- NOTE | 2018-12-29 14:19 | NUR ---
spoke to tico at dr. escamilla office. faxed facesheet to [phone]. She states they do have a pump. they are going to submit auth. She states they do iv abx mwf usually. Could potentially dc patient Tues after 3 pm doses of vanc and rocephin and have the pt come to Dr. Osmna's office wends to start. She states she will notify me when she receives auth and we will go from there.
[2018-12-29] MEDS ORDERED: SODIUM CHLORIDE 0.9% 250ML 250 ML ONE (15:24)
[2018-12-29] MEDS: VANCOMYCIN 1GM/NS 250 ML 250 ML IV SCH (15:32)
[2018-12-29] MEDS: WARFARIN SOD 2 MG TAB PO SCH (16:34)
[2018-12-29] MEDS: CEFTRIAXONE SOD 1 GM/NS 50 ML 50 ML IV SCH (16:36)
[2018-12-29] MEDS: ATORVASTATIN 20 MG TAB PO SCH (22:48)
[2018-12-30] VITALS (9 sets, daily range): BP systolic 136–156; BP diastolic 78–85
[2018-12-30] MEDS: FUROSEMIDE INJ 10 MG/ML 4 ML VIAL IV SCH ×2 (05:48→18:39)
[2018-12-30 07:12] LABS: BASOPHILS # (AUTO) 0.1 (0.0-0.1); BASOPHILS % 0.6 % (0.0-1.0); EOSINOPHILS # (AUTO) 0.4 (0.0-0.4); EOSINOPHILS % 4.2 % (0.0-6.0); HEMATOCRIT 36.8 % (38.2-49.6); HEMOGLOBIN 11.4 g/dL (14.0-18.0); LYMPHOCYTES # (AUTO) 1.6 (1.0-3.2); LYMPHOCYTES % 19.5 % (18.0-39.1); MEAN CORPUSCULAR HEMOGLOBIN 28.3 pg (28-32); MEAN CORPUSCULAR VOLUME 91.3 fL (81-99); MONOCYTES # (AUTO) 1.3 (0.2-0.8); MONOCYTES % 15.2 % (4.4-11.3); PLATELET COUNT 218 x10e3/uL (140-360); RED BLOOD COUNT 4.03 x10e6/uL (4.3-5.7); RED CELL DISTRIBUTION WIDTH 14.2 % (11.7-14.4)
--- NOTE | 2018-12-30 07:22 | NUR ---
report given to day nurse. patient is resting comfortably in bed. bed is in lowest position and call yu is within reach.
[2018-12-30 07:30] LABS: INR 2.81; PROTHROMBIN TIME 30.3 seconds (11.9-14.5)
[2018-12-30 07:39] LABS: ANION GAP 17.4 mmol/L (8-16); CALCIUM 9.9 mg/dL (8.4-10.2); CREATININE, SERUM 2.64 mg/dL (0.72-1.25); POTASSIUM 4.4 mmol/L (3.5-5.1)
[2018-12-30] MEDS: GLIPIZIDE 5 MG TAB PO SCH ×2 (09:17→17:35)
[2018-12-30] MEDS: ASPIRIN 81 MG CHEW TAB PO SCH (09:17)
[2018-12-30] MEDS: AMIODARONE HCL 200 MG TAB PO SCH (09:18)
[2018-12-30] MEDS: CARVEDILOL 40 MG CAPCR PO SCH (09:18)
[2018-12-30] MEDS: EZETIMIBE 10 MG TAB PO SCH (09:18)
[2018-12-30] MEDS: AMLODIPINE BESYLATE 5 MG TAB PO SCH (09:18)
[2018-12-30] MEDS: OLMESARTAN 20 MG TAB PO SCH (09:18)
--- NOTE | 2018-12-30 14:50 | NUR ---
Visit made by the Spiritual Care Department Pastoral Visitor, Tiffanie Jolley. Pt sleeping soundly and no family present. Pastoral Visitor left a card describing availability of counter clerk tractor parts and instructions on how to contact a counter clerk tractor [employer]. TENISHA ADDISON Carving Machine Operator Spiritual Care Department O: [phone] Pager: [phone] ([phone] number calling from)
--- NOTE | 2018-12-30 15:30 | NUR ---
Dr. Osman office paged in regards to Vanc Trough reported from lab, awaiting call back.
[2018-12-30] MEDS: CEFTRIAXONE SOD 1 GM/NS 50 ML 50 ML IV SCH (15:46)
--- NOTE | 2018-12-30 16:05 | NUR ---
Returned phone call received from TEMO Hernadez for Dr. Osman. Gave order to give vanc medication.
--- NOTE | 2018-12-30 16:23 | NUR ---
Spoke to Amna, patient's , regarding dc plan. Amna has many medical questions. Directed Sue RN to please have MDs call her d/t patients short term memory loss (per amna). Gave Amna CM contact number for questions and concerns regarding dc plan.
[2018-12-30] MEDS: VANCOMYCIN 1GM/NS 250 ML 250 ML IV SCH (17:35)
[2018-12-30] MEDS: WARFARIN SOD 2 MG TAB PO SCH (17:36)
--- NOTE | 2018-12-30 19:00 | NUR ---
RECEIVED PATIENT IN BEDSIDE REPORT. PATIENT REPORTS NO PAIN AT THIS TIME. NO S&S OF DISTRESS NOTED. BED LOCKED IN LOWEST POSITION, SIDE RAILS UPX2, CALL LIGHT IN REACH.
[2018-12-30] MEDS: ATORVASTATIN 20 MG TAB PO SCH (21:37)
[2018-12-31] VITALS (9 sets, daily range): BP systolic 103–162; BP diastolic 62–88
[2018-12-31 05:21] LABS: BASOPHILS # (AUTO) 0.1 (0.0-0.1); BASOPHILS % 0.8 % (0.0-1.0); EOSINOPHILS # (AUTO) 0.3 (0.0-0.4); EOSINOPHILS % 5.1 % (0.0-6.0); HEMATOCRIT 32.1 % (38.2-49.6); HEMOGLOBIN 10.2 g/dL (14.0-18.0); LYMPHOCYTES # (AUTO) 1.2 (1.0-3.2); LYMPHOCYTES % 20.3 % (18.0-39.1); MEAN CORPUSCULAR HEMOGLOBIN 28.4 pg (28-32); MEAN CORPUSCULAR HGB CONC 31.8 g/dL (31-35); MEAN CORPUSCULAR VOLUME 89.4 fL (81-99); MONOCYTES # (AUTO) 0.9 (0.2-0.8); MONOCYTES % 15.3 % (4.4-11.3); NEUTROPHILS # (AUTO) 3.4 (2.1-6.9); NEUTROPHILS % 58.2 % (38.7-80.0); PLATELET COUNT 177 x10e3/uL (140-360); RED BLOOD COUNT 3.59 x10e6/uL (4.3-5.7)
[2018-12-31 05:44] LABS: ANION GAP 14.2 mmol/L (8-16); CALCIUM 9.3 mg/dL (8.4-10.2); CREATININE, SERUM 2.11 mg/dL (0.72-1.25); MAGNESIUM 2.7 MG/DL (1.3-2.1); POTASSIUM 4.2 mmol/L (3.5-5.1)
[2018-12-31] MEDS: FUROSEMIDE INJ 10 MG/ML 4 ML VIAL IV SCH ×2 (06:07→17:40)
[2018-12-31] MEDS: ASPIRIN 81 MG CHEW TAB PO SCH (09:05)
[2018-12-31] MEDS: OLMESARTAN 20 MG TAB PO SCH (09:05)
[2018-12-31] MEDS: GLIPIZIDE 5 MG TAB PO SCH ×2 (09:05→17:40)
[2018-12-31] MEDS: CARVEDILOL 40 MG CAPCR PO SCH (09:05)
[2018-12-31] MEDS: AMIODARONE HCL 200 MG TAB PO SCH (09:05)
[2018-12-31] MEDS: AMLODIPINE BESYLATE 5 MG TAB PO SCH (09:06)
[2018-12-31] MEDS: EZETIMIBE 10 MG TAB PO SCH (09:06)
[2018-12-31 09:36] LABS: INR 3.46; PROTHROMBIN TIME 35.6 seconds (11.9-14.5)
[2018-12-31] MEDS ORDERED: ONDANSETRON HCL 4 MG ORAL DISINTEGRATING TAB PO PRN (10:00)
--- NOTE | 2018-12-31 11:15 | Progress Note ---
DATE: 12/31/2018 SUBJECTIVE: This is a 73-year-old male with past medical history of type 2 diabetes, CHF, peripheral neuropathy, chronic venous insufficiency, who was admitted several days ago for cellulitis of the right lower extremity. The patient currently denies nausea, vomiting, fever, chills, chest pain, or shortness of breath. No acute issues overnight. PHYSICAL EXAMINATION: GENERAL: Alert and oriented x3, in no apparent distress. VITAL SIGNS: Temperature 96.0, heart rate 64, respiratory rate 18, blood pressure 162/83, pulse ox 97% on room air. PROBLEM FOCUSED LOWER EXTREMITY PHYSICAL EXAM: Vascular, dorsalis pedis and posterior tibial pulses are faintly palpable. Capillary refill time approximately 4-5 seconds to all remaining digits. Erythema and edema to the right lower extremity were noted and noted to be significantly improved since previous visit. No warmth or tenderness is present. NEUROLOGICAL: Sensation is diminished to light touch bilateral. MUSCULOSKELETAL: History of right hallux amputation. DERMATOLOGICAL: Erythema and edema noted to the distal aspect of the anterior tibia, significantly improved since previous visit. Does not appear to be any focal fluid collection or abscess formation. LABORATORY DATA: White blood cell count is 5.9, hemoglobin 10.2, hematocrit 32.1, and platelet count 177. Sodium 138, potassium 4.2, chloride 102, BUN 46, creatinine 2.11. ASSESSMENT: 1. Lower extremity edema, cellulitis, chronic insufficiency with venous stasis dermatitis, improving. 2. Congestive heart failure. 3. Type 2 diabetes, peripheral neuropathy. 4. Right hallux amputation. PLAN: The patient was seen and evaluated. Discussed condition and treatment options with the patient in detail. Cellulitis and edema continued to be improving to the right lower extremity. Continue IV antibiotics per Infectious Disease and primary care team. No open wounds, ulcerations, or focal fluid collections are present. Continue to recommend lower extremity elevation with compression dressings. The patient is stable to be discharged from Podiatry standpoint. Podiatry Service will continue to monitor as inpatient. REGINA Alexander/WM /[id number]
--- NOTE | 2018-12-31 14:54 | NUR ---
spoke to dr. santacruz, he states ltac is the plan for mr cortez. MD gives order for ltac eval, ok to go, and states he is notifying attending MD. Order entered
[2018-12-31] MEDS: VANCOMYCIN 1GM/NS 250 ML 250 ML IV SCH (15:15)
--- NOTE | 2018-12-31 16:18 | NUR ---
spoke to Mrs Ferreira at bedside regarding new LTAC order. Mrs Ferreira chooses [facility]. Choice lette signed and placed in chart. Rep for FILIBERTO notified, MOT initiated
[2018-12-31] MEDS: WARFARIN SOD 2 MG TAB PO SCH (17:00)
[2018-12-31] MEDS: CEFTRIAXONE SOD 1 GM/NS 50 ML 50 ML IV SCH (17:40)
--- NOTE | 2018-12-31 18:26 | Progress Note ---
DATE: SUBJECTIVE: Mr. Justus Ferreira has been seen several times today by me and my office team, we talked to him and his several times. The patient is currently lying in bed comfortably, but weak. He otherwise concerned that he is forgetful, mainly dementia, cannot provide any meaningful decision. The patient is currently alert, oriented. The leg seems to be better with still edema. There is still erythema. He had failed oral antibiotic, concerned that his slow progress is due to the edema and maybe also resistant pathogen. He is stealthily getting better, but very slow. The patient will benefit continue IV antibiotic and to keep monitoring his fluid status and diurese accordingly. However, he will be best served if we take him to LTAC. The patient is currently lying in bed, comfortable with no complaints except he is still weak. PHYSICAL EXAMINATION: GENERAL: He is currently alert, oriented, does not seem to be in acute distress. VITAL SIGNS: Stable, currently afebrile. HEENT: Not icteric. NECK: Supple. CHEST: Clear bilateral. COR: S1 and S2. No S3, S4 or murmur. ABDOMEN: Soft and obese. EXTREMITIES: Bilateral lower extremity, there is edema. On the right leg, there is still some erythema noted. There is edema noted, pitting edema. Erythema is from the toes all the way to below the knee. IMPRESSION: 1. Cellulitis, very slow progress. 2. Edema is probably due to congestive heart failure and fluid overload. I think he would best be served if we continue current IV antibiotic and diuresis and he may need IV Lasix once in a while and going to LTAC, I think will help. 3. Other medical problem, congestive heart failure, dementia, and debility complicating his medical issues. 4. We will follow. MD ARMANDO Jhaveri/WM /[id number]
--- NOTE | 2018-12-31 19:37 | Progress Note ---
DATE: Cardiology Progress Note SUBJECTIVE: The patient is feeling well. Denies any chest pain or shortness of breath. OBJECTIVE: VITAL SIGNS: Temperature is 96, heart rate 64, respirations are 18, blood pressure is 162/83, and oxygen saturation 97% on room air. GENERAL: Well appearing, well built, in no apparent distress. CARDIOVASCULAR: Normal rate and rhythm. Mechanical S2. No murmurs. LUNGS: Mildly decreased breath sounds at bases. EXTREMITIES: Edema. CARDIOVASCULAR MEDICATIONS: Reviewed. LABORATORY DATA: Reviewed. Hemoglobin 10.2. Creatinine is 2.1. IMPRESSION: 1. Acute on chronic systolic congestive heart failure. 2. Lower extremity cellulitis. 3. Coronary artery disease, status post percutaneous coronary intervention. 4. Mechanical aortic valve replaced, on warfarin. 5. Chronic venous insufficiency. 6. Hypertension. 7. Hyperlipidemia. 8. Diabetes mellitus. RECOMMENDATIONS: Continue warfarin for therapeutic INR. Continue diuretics for congestive heart failure and venous insufficiency treatment. Laboratory values are stable. Continue all other current cardiovascular medications. Antibiotics per Infectious Disease. Nick Mc DO BM/MODL /[id number]
[2018-12-31] MEDS: ATORVASTATIN 20 MG TAB PO SCH (20:32)
[2018-12-31] MEDS: PANTOPRAZOLE SOD 40 MG TABEC PO SCH (20:32)
[2019-01-01] VITALS (7 sets, daily range): BP systolic 112–184; BP diastolic 69–87
[2019-01-01 05:36] LABS: BASOPHILS # (AUTO) 0.1 (0.0-0.1); BASOPHILS % 1.1 % (0.0-1.0); EOSINOPHILS # (AUTO) 0.3 (0.0-0.4); EOSINOPHILS % 5.2 % (0.0-6.0); HEMATOCRIT 34.3 % (38.2-49.6); HEMOGLOBIN 10.6 g/dL (14.0-18.0); LYMPHOCYTES # (AUTO) 1.4 (1.0-3.2); LYMPHOCYTES % 21.9 % (18.0-39.1); MEAN CORPUSCULAR HEMOGLOBIN 28.1 pg (28-32); MEAN CORPUSCULAR HGB CONC 30.9 g/dL (31-35); MONOCYTES % 15.3 % (4.4-11.3); NEUTROPHILS # (AUTO) 3.7 (2.1-6.9); NEUTROPHILS % 56.2 % (38.7-80.0); PLATELET COUNT 184 x10e3/uL (140-360); RED BLOOD COUNT 3.77 x10e6/uL (4.3-5.7)
[2019-01-01] MEDS: FUROSEMIDE INJ 10 MG/ML 4 ML VIAL IV SCH (05:52)
[2019-01-01 05:54] LABS: ANION GAP 13.3 mmol/L (8-16); CALCIUM 9.5 mg/dL (8.4-10.2); CREATININE, SERUM 2.48 mg/dL (0.72-1.25); POTASSIUM 4.3 mmol/L (3.5-5.1)
[2019-01-01] MEDS: CARVEDILOL 40 MG CAPCR PO SCH (08:10)
[2019-01-01] MEDS: AMIODARONE HCL 200 MG TAB PO SCH (08:10)
[2019-01-01] MEDS: GLIPIZIDE 5 MG TAB PO SCH (08:10)
[2019-01-01] MEDS: ASPIRIN 81 MG CHEW TAB PO SCH (08:10)
[2019-01-01] MEDS: OLMESARTAN 20 MG TAB PO SCH (08:10)
[2019-01-01] MEDS: PANTOPRAZOLE SOD 40 MG TABEC PO SCH (08:10)
[2019-01-01] MEDS: AMLODIPINE BESYLATE 5 MG TAB PO SCH (08:11)
[2019-01-01] MEDS: EZETIMIBE 10 MG TAB PO SCH (08:11)
--- NOTE | 2019-01-01 11:26 | Progress Note ---
DATE: 01/01/2019 SUBJECTIVE: This is a 73-year-old male with past medical history of type 2 diabetes, CHF, peripheral neuropathy, chronic venous insufficiency, who was admitted approximately one week ago for cellulitis of the right lower extremity. The patient currently denies nausea, vomiting, fever, chills, chest pain, or shortness of breath. No acute issues overnight. PHYSICAL EXAMINATION: GENERAL: Alert and oriented x3, in no apparent distress. VITAL SIGNS: Today temperature 96.5, heart rate 62, respiratory rate 18, and pulse ox 96% on room air. PROBLEM FOCUSED LOWER EXTREMITY PHYSICAL EXAM: VASCULAR: Dorsalis pedis and posterior tibial pulses are faintly palpable. Capillary refill time is approximately 4-5 seconds to all remaining digits. Erythema and edema to the right lower extremity are improved. No warmth or tenderness is present. It is blanching. NEUROLOGICAL: Sensation is diminished to light touch bilateral. MUSCULOSKELETAL: History of right hallux amputation. DERMATOLOGICAL: Erythema and edema noted to the distal aspect of the anterior tibia. Continues to improve on a daily basis. Does not appear to be any focal fluid collection or abscess formation. LABORATORY DATA: White blood cell count is 6.5, hemoglobin 10.6, hematocrit 34.3, and platelet count 184. Sodium 136, potassium 4.3, chloride 101, CO2 of 26, BUN 58, creatinine 2.48. ASSESSMENT: 1. Lower extremity edema, cellulitis, chronic venous insufficiency with dermatitis, improving. 2. Congestive heart failure. 3. Type 2 diabetes. 4. Peripheral neuropathy. 5. Right hallux amputation. PLAN: The patient was seen and evaluated. Discussed condition and treatment options with the patient in detail. Cellulitis, edema continued to appear to be resolved to the right lower extremity. Continue IV antibiotics per Infectious Disease. Primary care team. There continues to be no open wounds, ulcerations, or fluid collections present. Continue to recommend elevation with compression dressings. The patient is being evaluated for an LTAC. Agree with this. The Podiatry Service will continue team will continue to monitor as inpatient. REGINA Alexander/WM /[id number]
--- NOTE | 2019-01-01 12:29 | NUR ---
Patient has been accepted to [facility]. Room 313. Dr. Rodriguez to attend. Bianca TORREZ notified
--- NOTE | 2019-01-01 16:53 | Progress Note ---
DATE: Cardiology Progress Note SUBJECTIVE: No acute events. The patient is feeling well. Denies any chest pain or shortness of breath. OBJECTIVE: VITAL SIGNS: Temperature is 96.5, heart rate is 62, respirations are 18, blood pressure is 119/70, and oxygen saturation is 96% on room air. GENERAL: Well appearing, in no apparent distress. CARDIOVASCULAR: Normal rate and rhythm. Mechanical S2. No murmurs. LUNGS: Mildly diminished breath sounds at bases. EXTREMITIES: Edema. NEUROLOGIC: No focal deficits noted. CARDIOVASCULAR MEDICATIONS: Reviewed. LABORATORY DATA: Reviewed. Hemoglobin 10.6. Creatinine 2.48. TELEMETRY: Monitoring revealed ventricular paced rhythm. IMPRESSION: 1. Acute on chronic systolic congestive heart failure. 2. Lower extremity cellulitis. 3. Coronary artery disease, status post percutaneous coronary intervention. 4. Mechanical aortic valve replacement, on warfarin. 5. Chronic venous insufficiency. 6. Hypertension. 7. Diabetes mellitus. 8. Hyperlipidemia. RECOMMENDATIONS: Continue warfarin for therapeutic INR. Continue diuresis. Titrate antihypertensives. Creatinine appears to be stable, however, up trending slightly. Check daily labs. Continue all the current cardiovascular medications. Antibiotics per Infectious Disease. Nick Mc DO BM/MODL /[id number]
--- NOTE | 2019-01-02 06:06 | Discharge Summary ---
ADMISSION DIAGNOSES: 1. Right lower extremity cellulitis, failed outpatient treatment. 2. Hypertension with chronic kidney disease 3 and chronic systolic congestive heart failure. 3. Acute on chronic systolic congestive heart failure. 4. Type 2 diabetes with chronic kidney disease 3. 5. History mechanical MVR. 6. Chronic kidney disease 3. 7. Hyperlipidemia. 8. Obesity with a BMI of 32. DISCHARGE DIAGNOSES: 1. Right lower extremity cellulitis, failed outpatient treatment. 2. Hypertension with chronic kidney disease 3 and chronic systolic congestive heart failure. 3. Acute on chronic systolic congestive heart failure. 4. Type 2 diabetes with chronic kidney disease 3. 5. History mechanical MVR. 6. Chronic kidney disease 3. 7. Hyperlipidemia. 8. Obesity with a BMI of 32. 9. Rule out deep vein thrombosis. 10. History of coronary artery disease with stents. 11. Mechanical MVR. 12. Hypertension. 13. Peripheral arterial disease. 14. Type 2 diabetes. 15. Chronic systolic congestive heart failure. SURGICAL HISTORY: Right great toe amputation, biventricular pacer, and mechanical MVR. FAMILY HISTORY: The patient's mom, sister, and grandpa have diabetes. SOCIAL HISTORY: Noncontributory. HOSPITAL COURSE: A 73-year-old male admits with right lower extremity redness and swelling that began 1 week prior to admission. He was [facility] and was treated with doxycycline and Keflex with no improvement. It is unknown if he had a fever because he takes Tylenol for pain. No drainage was noted per , but the patient does have blisters on the right lower extremity. On admission, the patient was started on vancomycin and Rocephin. ID was consulted. Chest x-ray showed pulmonary vascular congestion with [id number]-[id number] interstitial edema. Echo showed an EF of 45% preliminary. Right lower extremity venous Doppler was negative for DVT. Blood cultures were negative. After about a week of IV antibiotics, the patient's leg making very slow improvement, so the patient will discharge to [place] for long- term antibiotics and close physician monitoring. The patient and family understand discharge instructions and agrees to plan. Vital signs were stable, the patient is afebrile. Dictated by Morena Bernal NP Bjorn Rodriguez MD MIKE/MODL /[id number]
== END 2019-01-01 15:50 | DRG 602 ==
LOC: ER 19:51 → ERHOLD 22:22 → IMCU 12-25 13:47 → OBSVTOIN 12-25 15:06
PROVIDERS: ADMIT Internal Medicine; ATTEND Internal Medicine
DX: L03.115 Cellulitis of right lower limb (principal); I50.23 Acute on chronic systolic (congestive) heart failure; I13.0 Hypertensive heart and chronic kidney disease with heart failure and stage 1 through stage 4 chronic kidney disease, or unspecified chronic kidney disease; E11.22 Type 2 diabetes mellitus with diabetic chronic kidney disease; N18.3 Chronic kidney disease, stage 3 (moderate); Z95.2 Presence of prosthetic heart valve; E78.5 Hyperlipidemia, unspecified; E66.9 Obesity, unspecified; Z68.31 Body mass index [BMI] 31.0-31.9, adult; I87.8 Other specified disorders of veins; I25.10 Atherosclerotic heart disease of native coronary artery without angina pectoris; Z95.0 Presence of cardiac pacemaker; Z95.5 Presence of coronary angioplasty implant and graft; Z79.01 Long term (current) use of anticoagulants; E11.42 Type 2 diabetes mellitus with diabetic polyneuropathy; I87.2 Venous insufficiency (chronic) (peripheral); R53.81 Other malaise; D64.9 Anemia, unspecified; Z89.411 Acquired absence of right great toe; F03.90 Unspecified dementia, unspecified severity, without behavioral disturbance, psychotic disturbance, mood disturbance, and anxiety; Z79.82 Long term (current) use of aspirin; Z79.84 Long term (current) use of oral hypoglycemic drugs
CPT/HCPCS: 36415; 71046; 80048; 80053; 80202; 82550; 82553; 82948; 83735; 83880; 84484; 85025; 85610; 87040; 93306; 93971; 97139; 99285; G0378; J0360; J0696; J1940; J3370; J7050

== ENCOUNTER 2019-05-01 10:18 | Outpatient (RCR) | payer MEDICARE, BC ==
[~2019-05-01 10:18] MED LIST changes: +WARFARIN SODIUM2 MG PO; +ZETIA10 MG PO
[2019-05-01] MEDS ORDERED: LIDOCAINE VISC 2% SOLN 15 ML UDC ONE (16:43)
[2019-05-01] MEDS ORDERED: MINERAL OIL/PETROLAT/GLYCERI 6OZ BTL ONE (16:43)
[2019-05-01] MEDS ORDERED: COLLAGENASE OINTMENT 30 GM TUBE ONE (16:43)
== END 2019-05-09 ==
LOC: WCC 10:18
PROVIDERS: ATTEND Internal Medicine Infectious Disease
DX: E11.69 Type 2 diabetes mellitus with other specified complication (principal); E11.22 Type 2 diabetes mellitus with diabetic chronic kidney disease; E11.65 Type 2 diabetes mellitus with hyperglycemia; N18.3 Chronic kidney disease, stage 3 (moderate); I87.311 Chronic venous hypertension (idiopathic) with ulcer of right lower extremity; I87.331 Chronic venous hypertension (idiopathic) with ulcer and inflammation of right lower extremity; L97.811 Non-pressure chronic ulcer of other part of right lower leg limited to breakdown of skin; L03.115 Cellulitis of right lower limb; I79.8 Other disorders of arteries, arterioles and capillaries in diseases classified elsewhere; I87.2 Venous insufficiency (chronic) (peripheral); G99.0 Autonomic neuropathy in diseases classified elsewhere; R60.9 Edema, unspecified; I10 Essential (primary) hypertension; I50.9 Heart failure, unspecified; E78.5 Hyperlipidemia, unspecified; E66.3 Overweight